=== PATIENT | male | born 1955 | race Caucasian/White ===

== ENCOUNTER 2024-09-02 06:44 | Inpatient (IN) | payer MEDICARE, MEDICAID ==
[~2024-09-02] VITALS: Ht 193 cm; Wt 102.0 kg
--- NOTE | 2024-09-02 07:27 | ED.PDOC ---
History of Present Illness HPI Comments 68M presents to the ER w/ prior Hx of Type II DM which may be associated to the c/c of LE. Pt reports that he has been having urination issues as well as a sore on his right foot for a "while but has worsened in the last couple of day's". Pt has bilateral Peripheral cyanosis of purple color and them being warm as well. Denies chills, fever, N/V/D, SOB, CP or other associated symptoms, modifiers or recent injuries or sick contact at this time. Chief Complaint: Lower Extremity Time Seen by MD: 07:15 Primary Care Provider: OUT OF AREA Reviewed Notes: Nurses Notes, Medications, Allergies Allergies: Coded Allergies: NO KNOWN ALLERGIES (Unverified , 03/30/12) Information Source: Patient Mode of Arrival: Ambulatory Severity: Moderate Timing: Days Duration: Since onset, Days Prehospital treatment: None Past Medical History PAST MEDICAL HISTORY: DM (Type II) Surgical History: Denies all surgeries Family History Family History: Reviewed,noncontributory to illness, Unknown Social History Smoker: Non-Smoker Alcohol: Denies ETOH Use Drugs: Denies Drug Use Lives In: Home Constitutional: denies: chills, diaphoresis, fatigue, fever, malaise, sweats, weakness, others EENTM: denies: blurred vision, double vision, ear bleeding, ear discharge, ear drainage, ear pain, ear ringing, eye pain, eye redness, hearing loss, mouth pain, mouth swelling, nasal discharge, nose bleeding, nose congestion, nose pain, photophobia, tearing, throat pain, throat swelling, voice changes, others Respiratory: denies: cough, hemoptysis, orthopnea, SOB at rest, shortness of breath, SOB with excertion, stridor, wheezing, others Cardiovascular: denies: chest pain, dizzy spells, diaphoresis, Dyspnea on exertion, edema, irregular heart beat, left arm pain, lightheadedness, palpitations, PND, syncope, others Gastrointestinal: denies: abdomen distended, abdominal pain, blood streaked bowels, constipated, diarrhea, dysphagia, difficulty swallowing, hematemesis, melena, nausea, poor appetite, poor fluid intake, rectal bleeding, rectal pain, vomiting, others Genitourinary: denies: burning, dysuria, flank pain, frequency, hematuria, incontinence, penile discharge, penile sore, pain, testicle pain, testicle swelling, urgency, others Neurological: denies: dizziness, fainting, headache, left sided numbness, left sided weakness, numbness, paresthesia, pre-existing deficit, right sided numbness, right sided weakness, seizure, speech problems, tingling, tremors, weakness, others Musculoskeletal: denies: back pain, gout, joint pain, joint swelling, muscle pain, muscle stiffness, neck pain, others Integumetry: reports: change in color; denies: bruises, change in hair/nails, dryness, laceration, lesions, lumps, rash, wounds, others Allergic/Immunocompromised: denies: Difficulty Healing, Frequent Infections, Hives, Itching, others Hematologic/Lymphatic: denies: anemia, blood clots, easy bleeding, easy bruising, swollen glands, others Endocrine: denies: excessive hunger, excessive sweating, excessive thirst, excessive urination, flushing, intolerance to cold, intolerance to heat, unexplained weight gain, unexplained weight loss, others Psychiatric: denies: anxiety, bipolar disorder, depression, hopeless, panic disorder, schizophrenia, sleepless, suicidal, others All Other Systems: Reviewed and Negative Physical Exam Exam Comments Bilateral LE of peripheral cyanosis Left LE is warmer than the Left LE Discoloration of both feet General Appearance: No Apparent Distress, Normal HEENT: Normal ENT Inspection, Pharynx Normal, TMs Normal Neck: Full Range of Motion, Non-Tender, Normal, Normal Inspection Respiratory: Chest Non-Tender, Lungs Clear, No Accessory Muscle Use, No Respiratory Distress, Normal Breath Sounds Cardiovascular: No Edema, No JVD, No Murmur, No Gallop, Normal Peripheral Pulses, Regular Rate/Rhythm Breast Exam: Deferred Gastrointestinal: No Organomegaly, Non Tender, No Pulsatile Mass, Normal Bowel Sounds, Soft Genitalia: Deferred Pelvic: Deferred Rectal: Deferred Extremities: No calf tenderness, Normal capillary refill, Normal inspection, Normal range of motion, Non-tender, No pedal edema Musculoskeletal : Apperance: Normal Neurologic: Alert, air sealing technician II-XII nml as Tested, No Motor Deficits, Normal Affect, Normal Mood, No Sensory Deficits Cerebellar Function: Normal Reflexes: Normal Skin: Dry, Normal Color, Warm Lymphatic: No Adenopathy Was a procedure done? Was a procedure done?: No Differential Dx Considerations may include: Osteomyelitis, abscess, diabetic foot, X-Ray, Labs, Meds, VS Vital Signs Date Time Temp Pulse Resp B/P (MAP) Pulse Ox O2 Delivery O2 Flow Rate FiO2 09/02/24 12:34 87 16 96 Room Air 0 09/02/24 11:27 98.5 87 16 140/83 (102) 96 98.5 09/02/24 11:07 88 16 95 Room Air* 0 21 09/02/24 11:06 98.6 88 14 147/85 (105) 95 98.6 09/02/24 06:58 98.3 85 17 123/78 (93) 96 Lab Test 09/02/24 08:08 09/02/24 06:56 Range/Units White Blood Count 10.5 4.4-10.8 10^3/uL Red Blood Count 5.12 4.5-5.90 10^6/uL Hemoglobin 15.5 13.5-17.5 g/dL Hematocrit 45.6 41.0-53.0 % Mean Corpuscular Volume 89.0 80.0-100.0 fL Mean Corpuscular Hemoglobin 30.3 28.0-32.0 pg Mean Corpuscular Hemoglobin Concent 34.0 32.0-36.0 g/dL Red Cell Distribution Width 13.4 11.8-14.3 % Platelet Count 174 140-450 10^3/uL Mean Platelet Volume 7.7 6.9-10.8 fL Neutrophils (%) (Auto) 80.8 H 37.0-80.0 % Lymphocytes (%) (Auto) 7.7 L 10.0-50.0 % Monocytes (%) (Auto) 10.8 0.0-12.0 % Eosinophils (%) (Auto) 0.5 0.0-7.0 % Basophils (%) (Auto) 0.2 0.0-2.0 % Neutrophils # (Auto) 8.5 1.6-8.6 10 ^3/uL Lymphocytes # (Auto) 0.8 0.4-5.4 10 ^3/uL Monocytes # (Auto) 1.1 0-1.3 10 ^3/uL Eosinophils # (Auto) 0 0-0.8 10 ^3/uL Basophils # (Auto) 0 0-0.2 10 ^3/uL Nucleated Red Blood Cells 0.0 % Erythrocyte Sedimentation Rate 14 0-20 mm/hr Sodium Level 137 136-145 mmol/L Potassium Level 4.0 3.5-5.1 mmol/L Chloride Level 103 98-107 mmol/L Carbon Dioxide Level 26 20-31 mmol/L Anion Gap 8 5-15 Blood Urea Nitrogen 13 9-23 mg/dL Creatinine 0.94 0.700-1.30 mg/dL Glomerular Filtration Rate Calc 89 >90 mL/min BUN/Creatinine Ratio 13.8 10.0-20.0 Serum Glucose 204 H 74-106 mg/dL Hemoglobin A1c 7.4 H <5.7 % A1C Calcium Level 10.4 8.7-10.4 mg/dL Total Bilirubin 1.3 H 0.2-1.0 mg/dL Aspartate Amino Transferase (AST) 16 13-40 U/L Alanine Aminotransferase (ALT) 23 7-40 U/L Alkaline Phosphatase 72 46-116 U/L C-Reactive Protein High Sensitivity 4.33 H <1.0 mg/dL Total Protein 7.6 5.7-8.2 g/dL Albumin 4.6 3.2-4.8 g/dL POC Glucose 188 H 70-106 mg/dl Current Medications Medications (Trade) Dose Ordered Sig/Ariana Route Start Time Stop Time Status Last Admin Piperacillin Sod/ Tazobactam Sod 100 ml @ 100 mls/hr ONCE ONCE IV 09/02/24 11:15 09/02/24 12:14 DC 09/02/24 11:44 Vancomycin HCl 250 ml @ 250 mls/hr Q1H IV 09/02/24 12:15 09/02/24 14:14 DC 09/02/24 14:38 Sodium Chloride 1,000 ml @ 75 mls/hr [id number] IV 09/02/24 13:15 09/02/24 13:58 X-Ray, Labs, Meds, VS Comment This is a 68-year-old gentleman with diabetic foot who has right foot is quite ecchymotic with a wound at the ventral surface. Patient is high-risk for complication of osteomyelitis abscess etc.. Therefore recommended hospitalization. Time of 1ST Reevaluation: 07:45 Reevaluation 1ST: Unchanged Patient Education/Counseling: Diagnosis, Treatment, Prognosis Family Education/Counseling: No Family Present Departure 1 Departure Time of Disposition: 11:02 Impression: Primary Impression: Diabetic foot Additional Impressions: Diabetic foot infection Diabetic foot ulcer Disposition: 09 ADMITTED INPATIENT Admit to: Med Surg Condition: Guarded Critical Care Note Critical Care Time?: Yes (45 min-critical care time only) Critical care comment: CRITICAL CARE TIME: minutes Treatments/Evaluations: Close monitoring and treatment of unstable vital signs, cardiorespiratory, and neurologic status, while maintaining tight balance of fluid, respiratory, and cardiac interventions. This time includes discussing the case with the patient and the patients family. This time does not include all procedures stated elsewhere in this record. This time also includes reviewing old records, labs and radiological studies. This time includes examining and re- examining the patient. Additionally, this time also includes arranging care with admitting and consulting physicians. Stability Stability form required: No I personally scribed for HENRY BROWNLEE MD ([email or web address]) on 09/02/24 at 07:27. Electronically submitted by Khurram Jorgensen ([email or web address]). HENRY BROWNLEE MD Sep 02, 2024 07:27
[2024-09-02 08:34] LABS: Basophils # (auto) 0 10 ^3/uL (0-0.2); Basophils % (auto) 0.2 % (0.0-2.0); Eosinophils # (auto) 0 10 ^3/uL (0-0.8); Eosinophils % (auto) 0.5 % (0.0-7.0); Hematocrit 45.6 % (41.0-53.0); Hemoglobin 15.5 g/dL (13.5-17.5); Lymphocytes # (auto) 0.8 10 ^3/uL (0.4-5.4); Lymphocytes % (auto) 7.7 % (10.0-50.0); Mean Corpuscular Hemoglobin 30.3 pg (28.0-32.0); Monocytes # (auto) 1.1 10 ^3/uL (0-1.3); Monocytes % (auto) 10.8 % (0.0-12.0); Neutrophils # (auto) 8.5 10 ^3/uL (1.6-8.6); Neutrophils % (auto) 80.8 % (37.0-80.0); Platelet Count (auto) 174 10^3/uL (140-450); Red Blood Cells 5.12 10^6/uL (4.5-5.90); Red Cell Distribution Width 13.4 % (11.8-14.3); White Blood Cell 10.5 10^3/uL (4.4-10.8)
[2024-09-02 08:52] LABS: Alanine Aminotransferase 23 U/L (7-40); Albumin 4.6 g/dL (3.2-4.8); Alkaline Phosphatase 72 U/L (46-116); Anion Gap 8 (5-15); Aspartate Aminotransferase 16 U/L (13-40); BUN/Creatinine Ratio 13.8 (10.0-20.0); Blood Urea Nitrogen 13 mg/dL (9-23); Calcium 10.4 mg/dL (8.7-10.4); Carbon Dioxide 26 mmol/L (20-31); Chloride 103 mmol/L (98-107); Sodium 137 mmol/L (136-145); Total Protein 7.6 g/dL (5.7-8.2)
[2024-09-02 09:01] LABS: Bilirubin, Total 1.3 mg/dL (0.2-1.0); CRP High Sensitivity 4.33 mg/dL (<1.0); Glucose 204 mg/dL (74-106)
[2024-09-02 09:40] LABS: Erythrocyte Sedimentation Rate 14 mm/hr (0-20)
--- NOTE | 2024-09-02 09:51 | DVH ---
EXAMINATION: CT CT R FOOT WO CONTRAST INDICATION: Diabetic foot COMPARISON: None TECHNIQUE: CT of the right foot was performed without contrast. Volume transverse images were obtaine d reconstructed in multiple planes using bone and soft tissue algorithms. CONTRAST: None Radiation Dose : CTDIvol 25 mGy, DLP 742.16 mGy*cm. The dose indicators for CT are the volume Computed Tomography (CT) Dose Index (CTDIvol) and the Dose Length Product (DLP), and are measured in units of mGy and mGy-cm, respectively. These indicators are not patient dose, but values generated from the CT scanner acquisition factors. The report includes radiation exposure data for exposures received during this examination. FINDINGS: There is a small wound underlying the 5th metatarsal head, with a superficial underlying hypodense co llection measuring 2.1 x 3.0 x 1.0 cm that abuts the 5th metatarsal head.There is no definite erosive change of adjacent 5th metatarsal bone. Possible additional wound along the plantar surface of 1st m etatarsal head is suggested, versus skin thickening. No acute fracture or osseous erosion is identified. There are scattered osseous degenerative changes . There is mild regional soft tissue swelling. IMPRESSION: 1. Small wound underlying the 5th metatarsal head. Superficial underlying hypodense collection measur ing 2.1 x 3.0 x 1.0 cm that abuts the plantar aspect of the 5th metatarsal head, which could represen t phlegmon versus abscess, incompletely evaluated without intravenous contrast. No definite erosive c hange of the adjacent 5th metatarsal bone. MRI is more sensitive in detecting osteomyelitis if clinic ally warranted. 2. Possible additional wound along the plantar surface of 1st metatarsal head, versus skin thickening . Correlate clinically. 3. Mild regional soft tissue edema / cellulitis. 4. No acute fracture.
[2024-09-02 11:07] VITALS: PULSE 88; RESP 16; O2SAT 95
[2024-09-02] MEDS ORDERED: VANCOMYCIN PER PHARMACY 0 MG IV SCH ×2 (11:15→13:15)
[2024-09-02] MEDS: PIPERACILLIN-TAZOB 3.375GM 100 ML IV ONE (11:44)
[2024-09-02] MEDS: VANCOMYCIN 1GM/250ML KIT 250 ML IV SCH (13:04)
[2024-09-02] MEDS ORDERED: ACETAMINOPHEN 325 MG TAB PO PRN (13:15)
[2024-09-02] MEDS ORDERED: DEXTROSE (50%) 50ML SYRG IV PRN (13:15)
[2024-09-02] MEDS: SODIUM CHLORIDE 0.9% 1,000 ML IV SCH (13:58)
--- NOTE | 2024-09-02 14:11 | DVHHP2 ---
History of Present Illness Reason for Visit: Right foot cellulitis History of Present Illness This is a 68-year-old male with history of type 2 DM presents to ED with chief complaint of right foot pain associated with swelling that started on progressively worse today. The patient reports coming to emergency room yest erday but due to lobby being full, patient decided to come today. The patient is concerned about his foot as it has not improved and would like to be further evaluated and treated. In addition to this the patient's complaint of urinary retention and may be undergoing a possible urinary tract infection that has been ongoing for several days. The patient will be admitted under hospitalist care to the medical-surgical unit, received IV hydration, IV antibiotics and monitoring of blood sugar levels. The patient denies fever, chills, headache, dizziness, palpitation, chest pain, shortness of breaths nausea, vomiting, abdominal pain, diarrhea, constipation and other associated symptoms. The plan has been discussed with the patient and primary RN in which all questions concerns have been addressed. Endocrine: Diabetes Past Surgical History: None Family History: None Smoke: No ALCOHOL: none Drugs: None Lives: with Family Domestic Violence: Neg Review of Systems Cardiovascular: Edema (To right foot) Genitourinary: Retention Skin: Other (Redness and tenderness to right foot) Allergies: Coded Allergies: NO KNOWN ALLERGIES (Unverified , 03/30/12) Medications Current Medications Medications Dose Ordered Sig/Ariana Route Start Time Stop Time Status Last Admin Dose Admin Vancomycin HCl 250 ml @ 250 mls/hr Q1H IV 09/02/24 12:15 09/02/24 14:14 09/02/24 13:04 250 MLS/HR Vancomycin HCl 0 ml @ 0 mls/hr UD IV 09/02/24 13:15 Sodium Chloride 1,000 ml @ 75 mls/hr [id number] IV 09/02/24 13:15 09/02/24 13:58 75 MLS/HR Acetaminophen/ Hydrocodone Bitart 1 tab Q4HP PRN PO 09/02/24 13:15 Zinc Sulfate 220 mg DAILY PO 09/03/24 10:00 Ascorbic Acid 500 mg BID PO 09/02/24 22:00 Multivitamins 1 tab DAILY PO 09/03/24 10:00 Acetaminophen 650 mg Q6HP PRN PO 09/02/24 13:15 Diagnostic Test (Pha) 1 strip ACHS 09/02/24 17:00 Insulin Human Regular ACHS SC 09/02/24 17:00 Dextrose 50 ml UD PRN IV 09/02/24 13:15 Piperacillin Sod/ Tazobactam Sod 100 ml @ 25 mls/hr Q8H IV 09/02/24 20:00 Exam Vital Signs Vital Signs Date Time Temp Pulse Resp B/P (MAP) Pulse Ox O2 Delivery O2 Flow Rate FiO2 09/02/24 12:34 87 16 96 Room Air 0 09/02/24 11:27 98.5 140/83 (102) 98.5 09/02/24 11:07 21 General Appearance: Alert, Oriented X3, Cooperative, No acute distress HEENT: Atraumatic, PERRLA, Mucous membr. moist/pink Respiratory: Clear to auscultation, Normal air movement Cardiovascular: Normal S1, Normal S2, No murmurs Abdominal: Normal bowel sounds, Soft, No tenderness, No hepatospenomegaly, No masses Extremities: No clubbing, Normal pulses Skin: No rashes Neuro: Normal gait, Normal speech, Strength at 5/5 X4 ext, Normal tone, Sensation intact, Cranial nerves 3-12 NL, Reflexes 2+ Psych/Mental Status: Mental status NL Labs/Xrays Labs Test 09/02/24 08:08 09/02/24 06:56 Range/Units White Blood Count 10.5 4.4-10.8 10^3/uL Red Blood Count 5.12 4.5-5.90 10^6/uL Hemoglobin 15.5 13.5-17.5 g/dL Hematocrit 45.6 41.0-53.0 % Mean Corpuscular Volume 89.0 80.0-100.0 fL Mean Corpuscular Hemoglobin 30.3 28.0-32.0 pg Mean Corpuscular Hemoglobin Concent 34.0 32.0-36.0 g/dL Red Cell Distribution Width 13.4 11.8-14.3 % Platelet Count 174 140-450 10^3/uL Mean Platelet Volume 7.7 6.9-10.8 fL Neutrophils (%) (Auto) 80.8 H 37.0-80.0 % Lymphocytes (%) (Auto) 7.7 L 10.0-50.0 % Monocytes (%) (Auto) 10.8 0.0-12.0 % Eosinophils (%) (Auto) 0.5 0.0-7.0 % Basophils (%) (Auto) 0.2 0.0-2.0 % Neutrophils # (Auto) 8.5 1.6-8.6 10 ^3/uL Lymphocytes # (Auto) 0.8 0.4-5.4 10 ^3/uL Monocytes # (Auto) 1.1 0-1.3 10 ^3/uL Eosinophils # (Auto) 0 0-0.8 10 ^3/uL Basophils # (Auto) 0 0-0.2 10 ^3/uL Nucleated Red Blood Cells 0.0 % Erythrocyte Sedimentation Rate 14 0-20 mm/hr Sodium Level 137 136-145 mmol/L Potassium Level 4.0 3.5-5.1 mmol/L Chloride Level 103 98-107 mmol/L Carbon Dioxide Level 26 20-31 mmol/L Anion Gap 8 5-15 Blood Urea Nitrogen 13 9-23 mg/dL Creatinine 0.94 0.700-1.30 mg/dL Glomerular Filtration Rate Calc 89 >90 mL/min BUN/Creatinine Ratio 13.8 10.0-20.0 Serum Glucose 204 H 74-106 mg/dL Calcium Level 10.4 8.7-10.4 mg/dL Total Bilirubin 1.3 H 0.2-1.0 mg/dL Aspartate Amino Transferase (AST) 16 13-40 U/L Alanine Aminotransferase (ALT) 23 7-40 U/L Alkaline Phosphatase 72 46-116 U/L C-Reactive Protein High Sensitivity 4.33 H <1.0 mg/dL Total Protein 7.6 5.7-8.2 g/dL Albumin 4.6 3.2-4.8 g/dL POC Glucose 188 H 70-106 mg/dl ORDERING PHYSICIAN: HENRY BROWNLEE MD PROCEDURE(s): RFTCT - CT R FOOT WO CONTRAST REASON: Diabetic foot ORDER NUMBER(s): [id number], ACCESSION NUMBER(s): [id number] EXAMINATION: CT CT R FOOT WO CONTRAST INDICATION: Diabetic foot COMPARISON: None TECHNIQUE: CT of the right foot was performed without contrast. Volume transverse images were obtained reconstructed in multiple planes using bone and soft tissue algorithms. CONTRAST: None Radiation Dose : CTDIvol 25 mGy, DLP 742.16 mGy*cm. The dose indicators for CT are the volume Computed Tomography (CT) Dose Index (CTDIvol) and the Dose Length Product (DLP), and are measured in units of mGy and mGy-cm, respectively. These indicators are not patient dose, but values generated from the CT scanner acquisition factors. The report includes radiation exposure data for exposures received during this examination. FINDINGS: There is a small wound underlying the 5th metatarsal head, with a superficial underlying hypodense collection measuring 2.1 x 3.0 x 1.0 cm that abuts the 5th metatarsal head.There is no definite erosive change of adjacent 5th metatarsal bone. Possible additional wound along the plantar surface of 1st metatarsal head is suggested, versus skin thickening. No acute fracture or osseous erosion is identified. There are scattered osseous degenerative changes. There is mild regional soft tissue swelling. IMPRESSION: 1. Small wound underlying the 5th metatarsal head. Superficial underlying hypodense collection measuring 2.1 x 3.0 x 1.0 cm that abuts the plantar aspect of the 5th metatarsal head, which could represent phlegmon versus abscess, incompletely evaluated without intravenous contrast. No definite erosive change of the adjacent 5th metatarsal bone. MRI is more sensitive in detecting osteomyelitis if clinically warranted. 2. Possible additional wound along the plantar surface of 1st metatarsal head, versus skin thickening. Correlate clinically. 3. Mild regional soft tissue edema / cellulitis. 4. No acute fracture. ATED BY: DIONI SOLER MD DICTATED DATE/TIME: 09/02/24947 SIGNED BY: DIONI SOLER MD SIGNED DATE/TIME: 09/02/24947 CC: Assessment/Plan Assessment/Plan Right foot cellulitis---patient presents to ED with complaint of right foot swelling and pain that started on progressively worse today Admit to medical-surgical unit Reviewed CBC which is normal Reviewed BMP which is normal Reviewed ESR which is normal CRP elevated at 4.[address] shows 5th metatarsal small wound versus abscess/mild soft tissue edema/cellulitis IV hydration IV antibiotics started in the ER vancomycin and Zosyn Consider to Consult carbonizer Dr. Lind for evaluation and recommendation ? Urinary tract infection Patient reports urinary retention times several days Urinalysis pending Reconcile home medication DVT prophylaxis not indicated patient ambulatory PUD prophylaxis not indicated no history of GERD Labs in a.m. Discussed plan of care with the patient in which all questions concerns have been addressed Plan discussed with: Patient My Orders Orders - JOSUE GONZALEZ Procedure Category Date Status Time Vancomycin Per PHA 09/02/24 In Process Pharmacy 13:15 Admit ADMIT 09/02/24 Transmitted 13:14 2 Gm Sodium Diet DIET 09/02/24 Transmitted Lunch Sodium Chloride 0.9% PHA 09/02/24 In Process 13:15 Hydrocodone-Acet PHA 09/02/24 In Process 5/325mg Tab ([facility] 13:15 Zinc Sulfate PHA 09/03/24 In Process 10:00 Ascorbic Acid Tablet PHA 09/02/24 In Process (Vitamin C Tablet) 22:00 Multiple Vitamin PHA 09/03/24 In Process Tablet (Mvi Tab) 10:00 Complete Blood Count LAB 09/03/24 Verified 04:00 Comprehensive LAB 09/03/24 Verified Metabolic Panel 04:00 Condition: Fair SAMMY 09/02/24 In Process 13:14 Acetaminophen Tablet PHA 09/02/24 In Process (Tylenol Tablet) 13:15 Bedrest With Bathroom SAMMY 09/02/24 In Process Privileg 13:14 Glucose Blood PHA 09/02/24 In Process (Accu-Chek Comfort 17:00 Insulin R (Human) PHA 09/02/24 In Process (Insulin R) 17:00 Dextrose 50% Syringe PHA 09/02/24 In Process 13:15 Hemoglobin A1c LAB 09/02/24 Logged 13:14 *Rn Truck Driver Supervisor REFER 09/02/24 Transmitted Referral 13:14 *Podiatry Consult CONS 09/02/24 Transmitted Musson([facility]) 13:14 Piperacillin-Tazob PHA 09/02/24 In Process 3.375gm (Zosyn 3.375g 20:00 Date of Service: Sep 02, 2024 Billing Provider: JOSUE GONZALEZ Common Visit Codes: [id number] INP/OBS CARE (HIGH) JOSUE GONZALEZ Sep 02, 2024 14:11
[2024-09-02 14:58] LABS: Urine Bacteria FEW /hpf (None Seen); Urine Blood 1+ /uL (Negative); Urine Clarity Turbid (Clear); Urine Protein, UAD TRACE (Negative); Urine Specific Gravity 1.021 (1.001-1.035); Urine Squamous Epithelial Cell FEW /hpf (<5); Urine Urobilinogen Normal (Negative); Urine WBC 265 /hpf (0 - 3)
[2024-09-02 14:59] LABS: Urine Color Yellow (Yellow)
[2024-09-02] MEDS: InsuLIN REG 1unit/0.01ml Soln (100units/ml) SC SCH (17:00)
[2024-09-02] MEDS: ACCU-CHEK COMFORT CURVE STRIP VI SCH (17:25)
[2024-09-02 20:40] VITALS: PULSE 96; RESP 19; O2SAT 95
[2024-09-02] MEDS: PIPERACILLIN-TAZOB 3.375GM 100 ML IV SCH (20:51)
[2024-09-02] MEDS: ASCORBIC ACID 500 MG TAB PO SCH (21:19)
[2024-09-02 21:59] VITALS: BP 128/74; PULSE 88; RESP 18; TEMP 98.2; O2SAT 94
[2024-09-02] MEDS: HYDROcodone-ACET 5/325MG TAB PO PRN (23:13)
[2024-09-02 23:29] VITALS: BP 135/84; PULSE 96; RESP 19; TEMP 98.9; O2SAT 95
[2024-09-03] VITALS (8 sets, daily range): BP systolic 113–131; BP diastolic 68–79; PULSE 78–94; RESP 17–19; TEMP 97.6–98.9; O2SAT 93–96
[2024-09-03] MEDS: VANCOMYCIN 1.25GM/250ML 250 ML IV SCH (00:59)
[2024-09-03 08:03] LABS: Basophils # (auto) 0 10 ^3/uL (0-0.2); Basophils % (auto) 0.3 % (0.0-2.0); Eosinophils # (auto) 0.1 10 ^3/uL (0-0.8); Eosinophils % (auto) 0.7 % (0.0-7.0); Hematocrit 41.8 % (41.0-53.0); Hemoglobin 14.5 g/dL (13.5-17.5); Lymphocytes # (auto) 1.3 10 ^3/uL (0.4-5.4); Lymphocytes % (auto) 12.3 % (10.0-50.0); Mean Corpuscular Hgb Conc. 34.7 g/dL (32.0-36.0); Mean Corpuscular Volume 89.3 fL (80.0-100.0); Monocytes # (auto) 1.1 10 ^3/uL (0-1.3); Monocytes % (auto) 10.5 % (0.0-12.0); Neutrophils # (auto) 7.8 10 ^3/uL (1.6-8.6); Neutrophils % (auto) 76.2 % (37.0-80.0); Nucleated Red Blood Cells % 0.1 %; Platelet Count (auto) 163 10^3/uL (140-450); Red Blood Cells 4.68 10^6/uL (4.5-5.90); Red Cell Distribution Width 13.1 % (11.8-14.3); White Blood Cell 10.3 10^3/uL (4.4-10.8)
[2024-09-03 08:20] LABS: Alanine Aminotransferase 17 U/L (7-40); Alkaline Phosphatase 63 U/L (46-116); Anion Gap 8 (5-15); BUN/Creatinine Ratio 13.3 (10.0-20.0); Blood Urea Nitrogen 11 mg/dL (9-23); Calcium 9.8 mg/dL (8.7-10.4); Carbon Dioxide 26 mmol/L (20-31); Chloride 104 mmol/L (98-107); Potassium 3.9 mmol/L (3.5-5.1); Sodium 138 mmol/L (136-145)
[2024-09-03 08:21] LABS: Albumin 4.2 g/dL (3.2-4.8)
[2024-09-03 08:22] LABS: Aspartate Aminotransferase 14 U/L (13-40); Bilirubin, Total 1.3 mg/dL (0.2-1.0); Glucose 133 mg/dL (74-106); Total Protein 6.9 g/dL (5.7-8.2)
[2024-09-03] MEDS: MULTIPLE VITAMIN TAB PO SCH (09:38)
[2024-09-03] MEDS: ZINC SULFATE 220mg CAP or TAB PO SCH (09:38)
--- NOTE | 2024-09-03 15:54 | DVH ---
EXAM: MRI MRI R FOOT WO CONTRAST HISTORY: r/o osteomylitis COMPARISON: CT CT R FOOT WO CONTRAST on DOS: 09/02/24 TECHNIQUE: Multiplanar, multisequence MRI of the right foot was performed. FINDINGS: An approximately 3 x 2.3 x 0.5 cm subcutaneous fluid collection is noted on aspect of MTP joint, with overlying skin abrasion/ulceration. The adjacent metatarsal head cortex is irregular mildly edemato us minimal underlying bone marrow edema suggestive of developing osteomyelitis. No 5th MTP joint effu edward. No abnormal signal in the 5th proximal phalanx. Mild dorsal foot subcutaneous edema is seen. There is mild hallux valgus deformity with mild 1st MTP joint osteoarthritis and small joint effusion . Lisfranc joint is congruent and Lisfranc tendon is intact. Flexor and extensor tendons are intact. Moderate plantar and interosseous fatty muscle atrophy noted . Visualized plantar fascia is unremarkable. IMPRESSION: 1. Skin ulceration on the lateral and plantar aspect of the 5th MTP joint with a thin underlying 3 x 0.5 cm subcutaneous fluid collection extending to underlying 5th metatarsal head with evidence of dev eloping acute osteomyelitis. 2. Mild dorsal foot subcutaneous edema. 3. Moderate plantar and interosseous fatty muscle atrophy.
--- NOTE | 2024-09-03 17:09 | DVHPNRES ---
Progress Note Date Seen: Sep 03, 2024 Resident Creating Document: PASCUAL SANDHU RESIDENT Medical Necessity Reason Pt with a Central, PICC or Fol: No Medical Necessity Reason Diabetic foot ulcer Subjective Review of Systems This is a 68-year-old male with history of type 2 DM presents to ED with chief complaint of right foot pain associated with swelling that started on progressively worse today. The patient is concerned about his foot as it has not improved and would like to be further evaluated and treated. In addition to this the patient's complaint of urinary retention and may be undergoing a possible urinary tract infection that has been ongoing for several days. The patient denies fever, chills, headache, dizziness, palpitation, chest pain, shortness of breaths nausea, vomiting, abdominal pain, diarrhea, constipation and other associated symptoms. Initial vitals in the ED were grossly unremarkable. blood work Lab work was also remote grossly unremarkable and UA was positive for UTI PN 09/03/2024: Patient seen and examined today. He has no new complaint. He did mentioned that his right foot was swollen however he is not aware of any ulcers or any open wounds. Still vitals stable and within normal limits. Lab shows A1c :7.4; CT shows cellulitis and MRI of the foot shows: Skin ulceration on the lateral and plantar aspect of the 5th MTP joint with a thin underlying 3 x 0.5 cm subcutaneous fluid collection extending to underlying 5th metatarsal head with evidence of developing acute osteomyelitis. Mild dorsal foot subcutaneous edema. Objective vital signs Vital Sign Date Time Temp Pulse Resp B/P (MAP) Pulse Ox O2 Delivery O2 Flow Rate FiO2 09/03/24 13:00 97.8 78 18 123/79 (94) 96 97.8 09/03/24 08:00 Room Air* 0 21 Total Intake and Output 09/02/24 09/02/24 09/03/24 15:00 23:00 07:00 Intake Total 425 ml 325 ml 650 ml Balance 425 ml 325 ml 650 ml medications Current Medications Medications Dose Ordered Sig/Ariana Route Start Time Stop Time Status Last Admin Dose Admin Vancomycin HCl 0 ml @ 0 mls/hr UD IV 09/02/24 13:15 Sodium Chloride 1,000 ml @ 75 mls/hr [id number] IV 09/02/24 13:15 09/03/24 02:35 75 MLS/HR Acetaminophen/ Hydrocodone Bitart 1 tab Q4HP PRN PO 09/02/24 13:15 09/02/24 23:13 1 TAB Zinc Sulfate 220 mg DAILY PO 09/03/24 10:00 09/03/24 09:38 220 MG Ascorbic Acid 500 mg BID PO 09/02/24 22:00 09/03/24 09:38 500 MG Multivitamins 1 tab DAILY PO 09/03/24 10:00 09/03/24 09:38 1 TAB Acetaminophen 650 mg Q6HP PRN PO 09/02/24 13:15 Diagnostic Test (Pha) 1 strip ACHS 09/02/24 17:00 09/03/24 11:30 1 STRIP Insulin Human Regular ACHS SC 09/02/24 17:00 09/03/24 12:17 4 UNITS Dextrose 50 ml UD PRN IV 09/02/24 13:15 Piperacillin Sod/ Tazobactam Sod 100 ml @ 25 mls/hr Q8H IV 09/02/24 20:00 09/03/24 12:16 25 MLS/HR Vancomycin HCl 250 ml @ 200 mls/hr Q12H IV 09/03/24 01:00 09/03/24 16:09 200 MLS/HR Tamsulosin HCl 0.4 mg QPM PO 09/03/24 18:00 Examination General Appearance: Alert, Oriented X3, Cooperative, No acute distress HEENT: irregular rough skin elevations with central scars or scales noted on the right jew, Atraumatic, PERRLA, EOMI, Mucous membrane moist/pink Respiratory: Clear to auscultation, Normal air movement Cardiovascular: Regular rate, Normal S1, Normal S2, No murmurs, no chest wall tenderness Abdominal: NO distention, no tenderness, bowel sounds present, no scars noted Extremities: --Rt foot: --> Mild edema, erythema --> ulcer under the foot --> no open sore/ wounds in between his toes Left foot: No abnormalities noted, callus note at mid lateral foot Upper Extremities: irregular rough skin elevations with central scars or scales No clubbing, No cyanosis, No edema, Normal pulses, No tenderness/swelling Skin: No rashes, No breakdown, No significant lesion Neuro: Normal gait, Normal speech, Strength at 5/5 X4 ext, Normal tone, Sensation intact, Cranial nerves 3-12 NL, Reflexes 2+ Psych/Mental Status: Mental status NL, Mood NL laboratory and microbiology Laboratory Tests 09/03/24 06:29 Test 09/03/24 06:29 Range/Units Serum Glucose 133 H 74-106 mg/dL Microbiology Date/Time Source Procedure Growth Status 09/02/24 08:08 Blood Blood Culture - Preliminary NO GROWTH AFTER 24 HOURS OF INCUBATION. Resulted Problem List/Assessment/Plan Problem List/Assessment/Plan Assessment Acute Osteomyelitis of the right lateral foot Diabetic foot ulcer Uncontrolled Diabetes, A1C 7.4 Urinary incontinence UTI History of hypertension History of hyperlipidemia Actinic Keratosis ?SCC Plan --> Continue antibiotic: Vancomycin and Zosyn --> Mld Insulins sliding scale --> PSA lab pending --> Podiatry consult --> Hydralazine 10mg prn if SBP is > 170 --> Tamsulosin --> Recommend that patient sees a sr risk management consultant outpatient CODE STATUS: FULL Goal of care discussed for more than 45 minute Case and plan discussed with Plan discussed with: Patient My Orders My Orders Orders - PASCUAL SANDHU Procedure Category Date Status Time Drug Screen LAB 09/03/24 Logged 07:35 Mri R Foot Wo Contrast MRI 09/03/24 Resulted 12:52 2 Gm Sodium Diet DIET 09/03/24 Transmitted Lunch Psa Total+% Free LAB 09/03/24 In Process 13:51 Tamsulosin PHA 09/03/24 In Process Hydrochloride (Flomax) 18:00 Podiatry Consult CONS 09/03/24 Transmitted 13:51 * Wound Consult CONS 09/03/24 Transmitted Date of Service: Sep 03, 2024 Billing Provider: MUSA CHUNG MD Common Visit Codes: [id number] INP/OBS CARE(HIGH) PASCUAL SANDHU RESIDENT Sep 03, 2024 17:09 MUSA CHUNG MD Sep 04, 2024 07:27
[2024-09-03] MEDS ORDERED: DEXTROSE (50%) 50ML SYRG IV PRN (17:15)
[2024-09-03] MEDS: TAMSULOSIN HYDROCHLORIDE 0.4 MG CAP PO SCH (17:50)
--- NOTE | 2024-09-03 19:19 | DVH ---
EXAM: XY CHEST PORTABLE TECHNIQUE: Single frontal chest radiograph CLINICAL HISTORY: pre op COMPARISON: None Findings/Impression: Frontal chest radiograph demonstrates no acute osseous or superficial soft tissue abnormalities. The trachea is midline. The cardiac silhouette and mediastinum are within normal limits. No pneumothorax, pleural effusions, or consolidations.
[2024-09-03] MEDS: ACCU-CHEK COMFORT CURVE STRIP VI SCH (20:33)
[2024-09-03] MEDS: InsuLIN REG 1unit/0.01ml Soln (100units/ml) SC SCH (20:42)
[2024-09-04] VITALS (8 sets, daily range): BP systolic 98–137; BP diastolic 60–77; PULSE 70–96; RESP 17–19; TEMP 97.6–98.7; O2SAT 92–99
[2024-09-04 06:22] LABS: Anion Gap 9 (5-15); Carbon Dioxide 23 mmol/L (20-31); Potassium 3.7 mmol/L (3.5-5.1); Sodium 140 mmol/L (136-145)
[2024-09-04 06:23] LABS: Calcium 9.8 mg/dL (8.7-10.4)
[2024-09-04 06:25] LABS: INR 1.09 (0.9-1.15); Partial Thromboplastin Time 28.5 SEC (24.5-34.5); Prothrombin Time 11.5 sec (9.3-11.8)
[2024-09-04 06:27] LABS: Basophils # (auto) 0 10 ^3/uL (0-0.2); Basophils % (auto) 0.4 % (0.0-2.0); Eosinophils # (auto) 0.1 10 ^3/uL (0-0.8); Eosinophils % (auto) 1.1 % (0.0-7.0); Hematocrit 39.6 % (41.0-53.0); Hemoglobin 13.7 g/dL (13.5-17.5); Lymphocytes # (auto) 1.4 10 ^3/uL (0.4-5.4); Lymphocytes % (auto) 16.2 % (10.0-50.0); Mean Corpuscular Hemoglobin 30.6 pg (28.0-32.0); Mean Corpuscular Hgb Conc. 34.6 g/dL (32.0-36.0); Mean Corpuscular Volume 88.4 fL (80.0-100.0); Monocytes # (auto) 0.9 10 ^3/uL (0-1.3); Monocytes % (auto) 10.3 % (0.0-12.0); Neutrophils # (auto) 6.1 10 ^3/uL (1.6-8.6); Nucleated Red Blood Cells % 0.2 %; Platelet Count (auto) 173 10^3/uL (140-450); Red Blood Cells 4.48 10^6/uL (4.5-5.90); Red Cell Distribution Width 13.1 % (11.8-14.3); White Blood Cell 8.5 10^3/uL (4.4-10.8)
[2024-09-04 06:28] LABS: BUN/Creatinine Ratio 10.3 (10.0-20.0); Blood Urea Nitrogen 9 mg/dL (9-23)
[2024-09-04 06:29] LABS: Chloride 108 mmol/L (98-107); Glucose 145 mg/dL (74-106)
--- NOTE | 2024-09-04 07:19 | DVHINCON2 ---
Date Seen: Sep 03, 2024 Reason for Consultation right foot wound History of Present Illness This is a 68-year-old male with history of type 2 DM presents to ED with chief complaint of right foot pain associated with swelling that started on progressively worse today. The patient reports coming to emergency room yesterday but due to lobby being full, patient decided to come today. The patient is concerned about his foot as it has not improved and would like to be further evaluated and treated. In addition to this the patient's complaint of urinary retention and may be undergoing a possible urinary tract infection that has been ongoing for several days. The patient will be admitted under hospitalist care to the medical-surgical unit, received IV hydration, IV antibiotics and monitoring of blood sugar levels. The patient denies fever, chills, headache, dizziness, palpitation, chest pain, shortness of breaths nausea, vomiting, abdominal pain, diarrhea, constipation and other associated symptoms. The plan has been discussed with the patient and primary RN in which all questions concerns have been addressed. Past Medical History see H&P Past Surgical History see H&P Family History: Cardiovascular disease G8 FATHER grandfather Allergies: Coded Allergies: NO KNOWN ALLERGIES (Unverified , 03/30/12) Home Meds No Active Prescriptions or Reported Meds Current Medications Current Medications Medications (Trade) Dose Ordered Sig/Ariana Route PRN Reason Start Time Stop Time Status Last Admin Zinc Sulfate 220 mg DAILY PO 09/03/24 10:00 09/03/24 09:38 Multivitamins (Mvi Tab) 1 tab DAILY PO 09/03/24 10:00 09/03/24 09:38 Tamsulosin HCl (Flomax) 0.4 mg QPM PO 09/03/24 18:00 09/03/24 17:50 Diagnostic Test (Pha) (Accu-Chek Comfort Curve T) 1 strip IQ4HR 09/03/24 20:00 09/04/24 04:15 Insulin Human Regular (InsuLIN R) IQ4HR SC 09/03/24 20:00 09/04/24 00:39 Dextrose 50 ml UD PRN IV Blood Sugar LESS THAN 60 09/03/24 17:15 Vital Signs Vital Signs Date Time Temp Pulse Resp B/P (MAP) Pulse Ox O2 Delivery O2 Flow Rate FiO2 09/04/24 05:00 97.7 78 18 117/73 (88) 92 97.7 09/03/24 20:00 Room Air* 0 21 Physical Exam DERMATOLOGIC EXAM: - Skin is dry and cool to the touch dry bilaterally. - Nails 1-5 of the bilateral foot are thickened, discolored, dystrophic, and tender to palpate with subungual debris - Hair loss noted to bilateral feet Wound #1: Location: Right lateral foot Measurements: Length 1cm x width 1cm x depth 1cm. Wound margins: Hyperkeratotic. Wound base: Full thickness. General Appearance: Healthy and bleeding. Probes to Bone: Yes Purulent drainage: Yes Serous drainage: No Erythema: Yes VASCULAR EXAM: - DP and PT pulses are palpable bilaterally. - CONTACT CLERK is brisk to all digits. - Feet are cool to touch compared to lower legs bilaterally. NEUROLOGIC EXAM: - Normal light touch sensation to the superficial peroneal, deep peroneal, sural, saphenous, and tibial nerve branches. - Protective sensation is diminished as tested with a 5.07 10g [place] bilaterally. MUSCULOSKELETAL EXAM: - No gross deformities - Muscle strength is 5/5 and active motion is pain-free and symmetrical bilaterally - No pain or crepitation with passive range of motion bilaterally to all major pedal joints Labs/Diagnostic Data Labs Test 09/04/24 05:27 09/04/24 00:34 09/04/24 00:30 09/03/24 14:57 Range/Units White Blood Count 8.5 4.4-10.8 10^3/uL Red Blood Count 4.48 L 4.5-5.90 10^6/uL Hemoglobin 13.7 13.5-17.5 g/dL Hematocrit 39.6 L 41.0-53.0 % Mean Corpuscular Volume 88.4 80.0-100.0 fL Mean Corpuscular Hemoglobin 30.6 28.0-32.0 pg Mean Corpuscular Hemoglobin Concent 34.6 32.0-36.0 g/dL Red Cell Distribution Width 13.1 11.8-14.3 % Platelet Count 173 140-450 10^3/uL Mean Platelet Volume 8.0 6.9-10.8 fL Neutrophils (%) (Auto) 72.0 37.0-80.0 % Lymphocytes (%) (Auto) 16.2 10.0-50.0 % Monocytes (%) (Auto) 10.3 0.0-12.0 % Eosinophils (%) (Auto) 1.1 0.0-7.0 % Basophils (%) (Auto) 0.4 0.0-2.0 % Neutrophils # (Auto) 6.1 1.6-8.6 10 ^3/uL Lymphocytes # (Auto) 1.4 0.4-5.4 10 ^3/uL Monocytes # (Auto) 0.9 0-1.3 10 ^3/uL Eosinophils # (Auto) 0.1 0-0.8 10 ^3/uL Basophils # (Auto) 0 0-0.2 10 ^3/uL Nucleated Red Blood Cells 0.2 % Prothrombin Time 11.5 9.3-11.8 sec Prothrombin Time INR 1.09 0.9-1.15 Activated Partial Thromboplast Time 28.5 24.5-34.5 SEC Sodium Level 140 136-145 mmol/L Potassium Level 3.7 3.5-5.1 mmol/L Chloride Level 108 H 98-107 mmol/L Carbon Dioxide Level 23 20-31 mmol/L Anion Gap 9 5-15 Blood Urea Nitrogen 9 9-23 mg/dL Creatinine 0.87 0.700-1.30 mg/dL Glomerular Filtration Rate Calc 95 >90 mL/min BUN/Creatinine Ratio 10.3 10.0-20.0 Serum Glucose 145 H 74-106 mg/dL Calcium Level 9.8 8.7-10.4 mg/dL POC Glucose 133 H 70-106 mg/dl Vancomycin Level Trough 11.5 H 5-10 ug/mL Test 09/03/24 06:29 09/02/24 14:47 09/02/24 08:08 Range/Units Total Bilirubin 1.3 H 0.2-1.0 mg/dL Aspartate Amino Transferase (AST) 14 13-40 U/L Alanine Aminotransferase (ALT) 17 7-40 U/L Alkaline Phosphatase 63 46-116 U/L Total Protein 6.9 5.7-8.2 g/dL Albumin 4.2 3.2-4.8 g/dL Urine Color Yellow Yellow Urine Clarity Turbid H Clear Urine pH 6.0 5.0-9.0 Urine Specific Broussard 1.021 1.001-1.035 Urine Protein Trace H Negative Urine Ketones 1+ H Negative Urine Blood 1+ H Negative /uL Urine Nitrite 2+ H Negative Urine Bilirubin Negative Negative Urine Urobilinogen Normal Negative mg/dL Urine Leukocyte Esterase 3+ Negative /uL Urine RBC 7 0 - 3 /hpf Urine WBC 265 0 - 3 /hpf Urine Squamous Epithelial Cells Few <5 /hpf Urine Bacteria Few H None Seen /hpf Urine Glucose Normal Normal mg/dL Erythrocyte Sedimentation Rate 14 0-20 mm/hr Hemoglobin A1c 7.4 H <5.7 % A1C C-Reactive Protein High Sensitivity 4.33 H <1.0 mg/dL Microbiology Date/Time Source Procedure Growth Status 09/02/24 08:08 Blood Blood Culture - Preliminary NO GROWTH AFTER 24 HOURS OF INCUBATION. Resulted Problems(with codes): (1) Diabetic foot (2) Diabetic foot ulcer (3) Diabetic foot infection Plan/Recommendation ASSESSMENT: Patient is a 68 year old seen on the floor for a worsening ulcer PLAN: - The patients chart was reviewed, clinical findings were discussed with the patient, the etiologies of the conditions were discussed in detail, and a treatment plan was agreed to at this time, with both oral and written instructions provided. - reviewed advanced imaging - discussed plan is to perform an incision and drainage - patient will be NPO at midnight - take him to the OR today - patient will return to the OR at a future date for closure - we will get cultures in the OR - can weightbear as tolerated in postoperative shoe All questions were answered and concerns addressed to the patient's satisfaction. The patient was given the phone number to the clinic and was told how to make contact with the clinic should any concerns or questions arise. Patient understands that if any questions or concerns arise prior to the next appointment, we should be contacted immediately. FOLLOW-UP: Continue to follow while inpatient Plan discussed with: Patient Date of Service: Sep 03, 2024 Billing Provider: ELIAS WHARTON DPM Common Visit Codes: [id number] INP/OBS CARE (HIGH) ELIAS WHARTON DPM Sep 04, 2024 07:19
--- NOTE | 2024-09-04 09:57 | DVHPNRES ---
Progress Note Date Seen: Sep 04, 2024 Resident Creating Document: PASCUAL SANDHU RESIDENT Medical Necessity Reason Pt with a Central, PICC or Fol: No Medical Necessity Reason Acute osteomyelitis of the right foot Diabetic foot ulcer Uncontrolled diabetes Subjective Review of Systems PN 09/03/2024: Patient seen and examined today. He has no new complaint. He did mentioned that his right foot was swollen however he is not aware of any ulcers or any open wounds. Still vitals stable and within normal limits. Lab shows A1c :7.4; CT shows cellulitis and MRI of the foot shows: Skin ulceration on the lateral and plantar aspect of the 5th MTP joint with a thin underlying 3 x 0.5 cm subcutaneous fluid collection extending to underlying 5th metatarsal head with evidence of developing acute osteomyelitis. Mild dorsal foot subcutaneous edema. PN 09/04/2024: Patient is seen and examined today at the bedside. He is doing well. He has no new complaint. He was seen yesterday by the knit goods washer who has reviewed the MRI findings with him. MRI showed evidence of developing acute osteomyelitis of the right foot. Patient has therefore been kept NPO for OR today for probably incision and drainage.His vitals and labs are within normal limits. Objective vital signs Vital Sign Date Time Temp Pulse Resp B/P (MAP) Pulse Ox O2 Delivery O2 Flow Rate FiO2 09/04/24 05:00 97.7 78 18 117/73 (88) 92 97.7 09/03/24 20:00 Room Air* 0 21 Total Intake and Output 09/03/24 09/03/24 09/04/24 15:00 23:00 07:00 Intake Total 2430 ml 2300 ml Output Total 1100 ml Balance 1330 ml 2300 ml medications Current Medications Medications Dose Ordered Sig/Ariana Route Start Time Stop Time Status Last Admin Dose Admin Vancomycin HCl 0 ml @ 0 mls/hr UD IV 09/02/24 13:15 Sodium Chloride 1,000 ml @ 75 mls/hr [id number] IV 09/02/24 13:15 09/04/24 06:08 75 MLS/HR Acetaminophen/ Hydrocodone Bitart 1 tab Q4HP PRN PO 09/02/24 13:15 09/02/24 23:13 1 TAB Zinc Sulfate 220 mg DAILY PO 09/03/24 10:00 09/03/24 09:38 220 MG Ascorbic Acid 500 mg BID PO 09/02/24 22:00 09/03/24 21:43 500 MG Multivitamins 1 tab DAILY PO 09/03/24 10:00 09/03/24 09:38 1 TAB Acetaminophen 650 mg Q6HP PRN PO 09/02/24 13:15 Piperacillin Sod/ Tazobactam Sod 100 ml @ 25 mls/hr Q8H IV 09/02/24 20:00 09/04/24 04:16 25 MLS/HR Vancomycin HCl 250 ml @ 200 mls/hr Q12H IV 09/03/24 01:00 09/04/24 01:30 200 MLS/HR Tamsulosin HCl 0.4 mg QPM PO 09/03/24 18:00 09/03/24 17:50 0.4 MG Diagnostic Test (Pha) 1 strip IQ4HR 09/03/24 20:00 09/04/24 04:15 1 STRIP Insulin Human Regular IQ4HR SC 09/03/24 20:00 09/04/24 00:39 2 UNITS Dextrose 50 ml UD PRN IV 09/03/24 17:15 Examination General Appearance: Alert, Oriented X3, Cooperative, No acute distress HEENT: irregular rough skin elevations with central scars or scales noted on the right hoahaoism, Atraumatic, PERRLA, EOMI, Mucous membrane moist/pink Respiratory: Clear to auscultation, Normal air movement Cardiovascular: Regular rate, Normal S1, Normal S2, No murmurs, no chest wall tenderness Abdominal: NO distention, no tenderness, bowel sounds present, no scars noted Extremities: --Rt foot: --> Mild edema, erythema --> ulcer under the foot --> no open sore/ wounds in between his toes Left foot: No abnormalities noted, callus note at mid lateral foot Upper Extremities: irregular rough skin elevations with central scars or scales No clubbing, No cyanosis, No edema, Normal pulses, No tenderness/swelling Skin: No rashes, No breakdown, No significant lesion Neuro: Normal gait, Normal speech, Strength at 5/5 X4 ext, Normal tone, Sensation intact, Cranial nerves 3-12 NL, Reflexes 2+ Psych/Mental Status: Mental status NL, Mood NL laboratory and microbiology Laboratory Tests 09/04/24 05:27 Test 09/04/24 05:27 Range/Units Serum Glucose 145 H 74-106 mg/dL Microbiology Date/Time Source Procedure Growth Status 09/02/24 08:08 Blood Blood Culture - Preliminary NO GROWTH AFTER 48 HOURS OF INCUBATION. Resulted Problem List/Assessment/Plan Problem List/Assessment/Plan Assessment Acute Osteomyelitis of the right lateral foot Diabetic foot ulcer Uncontrolled Diabetes, A1C 7.4 Urinary incontinence UTI History of hypertension History of hyperlipidemia Actinic Keratosis ?SCC Plan --> Continue antibiotic: Vancomycin and Zosyn --> Mild Insulins sliding scale --> PSA lab pending --> For OR today for incision and drainage --> Hydralazine 10mg prn if SBP is > 170 --> Tamsulosin --> Recommend that patient sees a rigging helper outpatient CODE STATUS: FULL Goal of care discussed for more than 45 minute Case and plan discussed with Plan discussed with: Patient My Orders My Orders Orders - PASCUAL SANDHU Procedure Category Date Status Time Mri R Foot Wo Contrast MRI 09/03/24 Resulted 12:52 2 Gm Sodium Diet DIET 09/03/24 Transmitted Lunch Psa Total+% Free LAB 09/03/24 In Process 13:51 Tamsulosin PHA 09/03/24 In Process Hydrochloride (Flomax) 18:00 Podiatry Consult CONS 09/03/24 Transmitted 13:51 * Wound Consult CONS 09/03/24 Transmitted Glucose Blood PHA 09/03/24 In Process (Accu-Chek Comfort 20:00 Insulin R (Human) PHA 09/03/24 In Process (Insulin R) 20:00 Dextrose 50% Syringe PHA 09/03/24 In Process 17:15 Chest Portable XY 09/03/24 Resulted 18:29 Date of Service: Sep 04, 2024 Billing Provider: MUSA CHUNG MD Common Visit Codes: [id number] INP/OBS CARE(HIGH) PASCUAL SANDHU RESIDENT Sep 04, 2024 09:57 MUSA CHUNG MD Sep 04, 2024 20:49
[2024-09-04] MEDS: ceFAZolin 2 GM/D5W100ml 100 ML IV ONE (11:47)
[2024-09-04] MEDS ORDERED: fentaNYL CITRATE 100 MCG/2 ML VL ONE (12:27)
[2024-09-04] MEDS ORDERED: MIDAZOLAM HCL 2MG/2ML 2ml VIAL (1mg/ml) ONE (12:28)
[2024-09-04] MEDS: BUPIVACAINE HCL 0.25% P/F 10 ML VIAL ONE (12:45)
--- NOTE | 2024-09-04 13:04 | DVHOP2 ---
Operative Report - 2 Report Details Date: 09/04/24 Preop Diagnosis: 1. Right foot abscess 2. Right foot osteomyelitis 3. Right foot cellulitis 4. Right foot chronic ulcer Postop Diagnosis: Same as preop Surgeon: Elias Wharton MD Anesthesiologist: See anesthesia Anesthesia: Mac Consent: The patient was informed of the risks and benefits of the procedure. These include but are not limited to complications of anesthesia, postoperative infection, incomplete relief of symptoms, recurrence of symptoms, damage to blood vessels, nerves and tendons, deep venous thrombosis, pulmonary embolism and possible need for repeat surgery in the future. Complications: None Estimated Blood Loss: Minimal Fluids: See anesthesia Findings: Consistent with diagnosis Indications for Surgery: Worsening right foot wound Name of Procedure Performed 1. Right foot I&D to bone (75385) 2. Right foot bone biopsy () Procedure Details Procedure Details: PRE-PROCEDURE INFORMATION: In the pre-op holding area, the extremity to be operated on was clearly marked and the patient verified correct laterality of the marking. The patient was transferred to the OR table and placed in a supine position. A timeout was performed in which identification of the correct patient, procedure, location, and materials was done. The right foot and leg were prepped and draped in normal sterile fashion. DESCRIPTION OF PROCEDURE: Attention was directed to the right where area of fluctuance was noted. An incision was made over this area and was deepened through blunt dissection. The incision was deepened to the level of abscess and bone. Care was taken to the dissection to avoid any neurovascular and tendinous structures. The incision was deepened to the bone, and the abscess appeared to be purulent fluid consistent with pus. The cortices of the bone was then removed with Ta an all necrotic tissue. After the abscess was drained, the area was irrigated with 3 L normal saline using cysto tubing. A bone biopsy was then taken of the right 5th metatarsal which was deepened to the muscle belly and tendons. The bone was then sent to pathology to determine the extent of osteomyelitis. Deep cultures were then obtained from the wound. The area was then inspected and any areas of tracking, especially along the tendons were also drained. The wound was packed with Betadine-soaked gauze and we will need to be closed at a later date. POSTOPERATIVE INFORMATION: The patient tolerated the above noted procedure and anesthesia well and was transferred to the PACU with vital signs stable, and vascular status intact with capillary refill intact to all digits. Patient will continue to be on IV antibiotics. Bone biopsy was taken and IV antibiotics. Patient will return to the OR on for repeat I&D with closure. Condition Good Disposition Still a Patient ELIAS WHARTON DPTabitha Sep 04, 2024 13:04
[2024-09-04] MEDS ORDERED: DexAMETHasone SOD PHOS 10MG/1ML VIAL INJ ONE (13:08)
[2024-09-04] MEDS ORDERED: PROPOFOL 10 MG/ML 20 ML IV ONE (13:08)
[2024-09-05] VITALS (7 sets, daily range): BP systolic 98–137; BP diastolic 57–82; PULSE 65–84; RESP 17–19; TEMP 97.4–97.9; O2SAT 92–96
[2024-09-05 01:06] LABS: PSA Free 2.54 ng/mL; Prostate Specific Antigen 6.8 ng/mL (0.0-4.0)
[2024-09-05 07:46] LABS: Basophils # (auto) 0 10 ^3/uL (0-0.2); Basophils % (auto) 0.2 % (0.0-2.0); Eosinophils # (auto) 0 10 ^3/uL (0-0.8); Eosinophils % (auto) 0.1 % (0.0-7.0); Hematocrit 38.4 % (41.0-53.0); Hemoglobin 13.4 g/dL (13.5-17.5); Lymphocytes # (auto) 1.5 10 ^3/uL (0.4-5.4); Lymphocytes % (auto) 15.3 % (10.0-50.0); Mean Corpuscular Hemoglobin 30.9 pg (28.0-32.0); Mean Corpuscular Hgb Conc. 34.9 g/dL (32.0-36.0); Mean Corpuscular Volume 88.5 fL (80.0-100.0); Monocytes # (auto) 0.9 10 ^3/uL (0-1.3); Monocytes % (auto) 9.5 % (0.0-12.0); Neutrophils # (auto) 7.3 10 ^3/uL (1.6-8.6); Neutrophils % (auto) 74.9 % (37.0-80.0); Nucleated Red Blood Cells % 0.1 %; Platelet Count (auto) 207 10^3/uL (140-450); Red Blood Cells 4.33 10^6/uL (4.5-5.90); Red Cell Distribution Width 13.2 % (11.8-14.3); White Blood Cell 9.8 10^3/uL (4.4-10.8)
[2024-09-05 08:00] LABS: Alanine Aminotransferase 15 U/L (7-40); Alkaline Phosphatase 59 U/L (46-116); Calcium 9.8 mg/dL (8.7-10.4); Carbon Dioxide 25 mmol/L (20-31); Sodium 139 mmol/L (136-145)
[2024-09-05 08:01] LABS: Albumin 3.9 g/dL (3.2-4.8); Anion Gap 7 (5-15); BUN/Creatinine Ratio 13.6 (10.0-20.0); Bilirubin, Total 0.7 mg/dL (0.2-1.0); Blood Urea Nitrogen 11 mg/dL (9-23); Total Protein 6.4 g/dL (5.7-8.2)
[2024-09-05 08:02] LABS: Aspartate Aminotransferase 13 U/L (13-40); Chloride 107 mmol/L (98-107); Glucose 163 mg/dL (74-106)
--- NOTE | 2024-09-05 14:18 | DVHPN2 ---
Subjective This is a 68-year-old male with history of type 2 DM presents to ED with chief complaint of right foot pain associated with swelling that started on progressively worse today. The patient reports coming to emergency room yesterday but due to lobby being full, patient decided to come today. The patient is concerned about his foot as it has not improved and would like to be further evaluated and treated. In addition to this the patient's complaint of urinary retention and may be undergoing a possible urinary tract infection that has been ongoing for several days. The patient will be admitted under hospitalist care to the medical-surgical unit, received IV hydration, IV antibiotics and monitoring of blood sugar levels. The patient denies fever, chills, headache, dizziness, palpitation, chest pain, shortness of breaths nausea, vomiting, abdominal pain, diarrhea, constipation and other associated symptoms. The plan has been discussed with the patient and primary RN in which all questions concerns have been addressed. Changes from previous H/P or p: No Changes Cardiovascular: Edema (To right foot) Genitourinary: Retention Skin: Other (Redness and tenderness to right foot) Objective Vitals Vital Signs Date Time Temp Pulse Resp B/P (MAP) Pulse Ox O2 Delivery O2 Flow Rate FiO2 09/05/24 09:26 97.6 81 17 107/57 (74) 94 97.6 09/04/24 20:00 Room Air* 0 21 Intake/Output Intake and Output 09/05/24 07:00 Intake Total 2068 ml Output Total 1250 ml Balance 818 ml Intake Oral 993 ml IV Total 1075 ml Output Urine Total 1250 ml # Bowel Movements 1 Exam DERMATOLOGIC EXAM: - Skin is dry and cool to the touch dry bilaterally. - Nails 1-5 of the bilateral foot are thickened, discolored, dystrophic, and tender to palpate with subungual debris - Hair loss noted to bilateral feet Wound #1: Location: Right lateral foot Measurements: Length 1cm x width 1cm x depth 1cm. Wound margins: Hyperkeratotic. Wound base: Full thickness. General Appearance: Healthy and bleeding. Probes to Bone: Yes Purulent drainage: Yes Serous drainage: No Erythema: Yes VASCULAR EXAM: - DP and PT pulses are palpable bilaterally. - AIDS COUNSELOR is brisk to all digits. - Feet are cool to touch compared to lower legs bilaterally. NEUROLOGIC EXAM: - Normal light touch sensation to the superficial peroneal, deep peroneal, sural, saphenous, and tibial nerve branches. - Protective sensation is diminished as tested with a 5.07 10g [place]-Reshma bilaterally. MUSCULOSKELETAL EXAM: - No gross deformities - Muscle strength is 5/5 and active motion is pain-free and symmetrical bilaterally - No pain or crepitation with passive range of motion bilaterally to all major pedal joints Medications Current Medications Medications Dose Ordered Sig/Ariana Route Start Time Stop Time Status Last Admin Dose Admin Vancomycin HCl 0 ml @ 0 mls/hr UD IV 09/02/24 13:15 Sodium Chloride 1,000 ml @ 75 mls/hr [id number] IV 09/02/24 13:15 09/05/24 07:55 75 MLS/HR Acetaminophen/ Hydrocodone Bitart 1 tab Q4HP PRN PO 09/02/24 13:15 09/02/24 23:13 1 TAB Zinc Sulfate 220 mg DAILY PO 09/03/24 10:00 09/05/24 09:36 220 MG Ascorbic Acid 500 mg BID PO 09/02/24 22:00 09/05/24 09:36 500 MG Multivitamins 1 tab DAILY PO 09/03/24 10:00 09/05/24 09:36 1 TAB Acetaminophen 650 mg Q6HP PRN PO 09/02/24 13:15 Vancomycin HCl 250 ml @ 200 mls/hr Q12H IV 09/03/24 01:00 09/05/24 13:21 200 MLS/HR Tamsulosin HCl 0.4 mg QPM PO 09/03/24 18:00 09/04/24 18:12 0.4 MG Diagnostic Test (Pha) 1 strip IQ4HR 09/03/24 20:00 09/05/24 12:00 1 STRIP Insulin Human Regular IQ4HR SC 09/03/24 20:00 09/05/24 08:00 2 UNITS Dextrose 50 ml UD PRN IV 09/03/24 17:15 Piperacillin Sod/ Tazobactam Sod 100 ml @ 25 mls/hr Q8H IV 09/05/24 14:30 Laboratory Results Laboratory Tests 09/05/24 07:03 Chemistry Test 09/05/24 07:03 Albumin 3.9 g/dL (3.2-4.8) Calcium Level 9.8 mg/dL (8.7-10.4) Total Protein 6.4 g/dL (5.7-8.2) LFT Test 09/05/24 07:03 Alanine Aminotransferase (ALT) 15 U/L (7-40) Alkaline Phosphatase 59 U/L (46-116) Aspartate Amino Transferase (AST) 13 U/L (13-40) Total Bilirubin 0.7 mg/dL (0.2-1.0) Urinalysis Test 09/02/24 14:47 Urine Color Yellow (Yellow) Urine Clarity Turbid (Clear) H Urine pH 6.0 (5.0-9.0) Urine Specific [place] 1.021 (1.001-1.035) Urine Protein Trace (Negative) H Urine Ketones 1+ (Negative) H Urine Blood 1+ /uL (Negative) H Urine Nitrite 2+ (Negative) H Urine Bilirubin Negative (Negative) Urine Urobilinogen Normal mg/dL (Negative) Urine Leukocyte Esterase 3+ /uL (Negative) Urine RBC 7 /hpf (0 - 3) Urine WBC 265 /hpf (0 - 3) Urine Squamous Epithelial Cells Few /hpf (<5) Urine Bacteria Few /hpf (None Seen) H Urine Glucose Normal mg/dL (Normal) Microbiology Microbiology Date/Time Source Procedure Growth Status 09/04/24 13:17 Foot Right Gram Stain - Final Resulted 09/04/24 13:17 Foot Right Anaerobic Culture - Preliminary Resulted 09/04/24 13:17 Foot Right Aerobic Culture - Preliminary Resulted 09/02/24 08:08 Blood Blood Culture - Preliminary NO GROWTH AFTER 72 HOURS OF INCUBATION. Resulted Assessment/Plan Assessment/Plan ASSESSMENT: Patient is a 68 year old seen on the floor 1 day s/p from an incision and drainage PLAN: - The patients chart was reviewed, clinical findings were discussed with the patient, the etiologies of the conditions were discussed in detail, and a treatment plan was agreed to at this time, with both oral and written instructions provided. - reviewed advanced imaging - discussed plan is to perform an incision and drainage - patient will be NPO at midnight - take him to the OR tomorrow - patient will return to the OR for closure - can weightbear as tolerated in postoperative shoe All questions were answered and concerns addressed to the patient's satisfaction. The patient was given the phone number to the clinic and was told how to make contact with the clinic should any concerns or questions arise. Patient understands that if any questions or concerns arise prior to the next appointment, we should be contacted immediately. FOLLOW-UP: Continue to follow while inpatient Plan discussed with: Patient My Orders Orders - ELIAS WHARTON DPM Procedure Category Date Status Time 2 Gm Sodium Diet DIET 09/04/24 Transmitted Dinner Npo After Midnight DIET 09/05/24 Transmitted Dinner Obtain Consent For: ORDERS 09/05/24 Transmitted 14:07 Problem List: (1) Diabetic foot (2) Diabetic foot ulcer (3) Diabetic foot infection Date of Service: Sep 05, 2024 Billing Provider: ELIAS WHARTON DPM Common Visit Codes: [id number] INP/OBS CARE(MOD) ELIAS WHARTON DPM Sep 05, 2024 14:18
[2024-09-05] MEDS: PIPERACILLIN-TAZOB 3.375GM 100 ML IV SCH (15:05)
--- NOTE | 2024-09-05 15:47 | DVHPNRES ---
Progress Note Date Seen: Sep 05, 2024 Resident Creating Document: PASCUAL SANDHU Medical Necessity Reason Pt with a Central, PICC or Fol: No Medical Necessity Reason Osteomyelitis of the right foot Subjective Review of Systems PN 09/03/2024: Patient seen and examined today. He has no new complaint. He did mentioned that his right foot was swollen however he is not aware of any ulcers or any open wounds. Still vitals stable and within normal limits. Lab shows A1c :7.4; CT shows cellulitis and MRI of the foot shows: Skin ulceration on the lateral and plantar aspect of the 5th MTP joint with a thin underlying 3 x 0.5 cm subcutaneous fluid collection extending to underlying 5th metatarsal head with evidence of developing acute osteomyelitis. Mild dorsal foot subcutaneous edema. PN 09/04/2024: Patient is seen and examined today at the bedside. He is doing well. He has no new complaint. He was seen yesterday by the maintenance mechanic millwright who has reviewed the MRI findings with him. MRI showed evidence of developing acute osteomyelitis of the right foot. Patient has therefore been kept NPO for OR today for probably incision and drainage.His vitals and labs are within normal limits. PN09/05/2024: Patient is seen and examined today at the bedside. He is doing well. He has no new complaint. Status post incision and drainage yesterday. Patient is doing well today has no complaint. He was seen by the maintenance mechanic millwright today who taken back to the OR tomorrow for 2nd round the I and D. currently pending the culture from the wound from the incision and drainage. And we will also put in an order for PICC line given that the patient will likely go home with a 6 weeks of antibiotics for the osteomyelitis. Blood work today is completely unremarkable and his vitals are also stable. Free PSA: 2.54, % free PSA; 373.8,Total PSA: 6.8 Objective vital signs Vital Sign Date Time Temp Pulse Resp B/P (MAP) Pulse Ox O2 Delivery O2 Flow Rate FiO2 09/05/24 13:00 97.8 74 17 123/81 (95) 96 97.8 09/04/24 20:00 Room Air* 0 21 Total Intake and Output 09/04/24 09/04/24 09/05/24 15:00 23:00 07:00 Intake Total 100 ml 400 ml 1568 ml Output Total 600 ml 650 ml Balance 100 ml -200 ml 918 ml medications Current Medications Medications Dose Ordered Sig/Ariana Route Start Time Stop Time Status Last Admin Dose Admin Vancomycin HCl 0 ml @ 0 mls/hr UD IV 09/02/24 13:15 Sodium Chloride 1,000 ml @ 75 mls/hr [id number] IV 09/02/24 13:15 09/05/24 07:55 75 MLS/HR Acetaminophen/ Hydrocodone Bitart 1 tab Q4HP PRN PO 09/02/24 13:15 09/02/24 23:13 1 TAB Zinc Sulfate 220 mg DAILY PO 09/03/24 10:00 09/05/24 09:36 220 MG Ascorbic Acid 500 mg BID PO 09/02/24 22:00 09/05/24 09:36 500 MG Multivitamins 1 tab DAILY PO 09/03/24 10:00 09/05/24 09:36 1 TAB Acetaminophen 650 mg Q6HP PRN PO 09/02/24 13:15 Vancomycin HCl 250 ml @ 200 mls/hr Q12H IV 09/03/24 01:00 09/05/24 13:21 200 MLS/HR Tamsulosin HCl 0.4 mg QPM PO 09/03/24 18:00 09/04/24 18:12 0.4 MG Diagnostic Test (Pha) 1 strip IQ4HR 09/03/24 20:00 09/05/24 12:00 1 STRIP Insulin Human Regular IQ4HR SC 09/03/24 20:00 09/05/24 08:00 2 UNITS Dextrose 50 ml UD PRN IV 09/03/24 17:15 Piperacillin Sod/ Tazobactam Sod 100 ml @ 25 mls/hr Q8H IV 09/05/24 14:30 09/05/24 15:05 25 MLS/HR Examination General Appearance: Alert, Oriented X3, Cooperative, No acute distress HEENT: irregular rough skin elevations with central scars or scales noted on the right pentecostalism, Atraumatic, PERRLA, EOMI, Mucous membrane moist/pink Respiratory: Clear to auscultation, Normal air movement Cardiovascular: Regular rate, Normal S1, Normal S2, No murmurs, no chest wall tenderness Abdominal: NO distention, no tenderness, bowel sounds present, no scars noted Extremities: --Rt foot: --> s/p I&D --> Mild edema, erythema --> wrapped in bandage Left foot: No abnormalities noted, callus note at mid lateral foot Upper Extremities: irregular rough skin elevations with central scars or scales No clubbing, No cyanosis, No edema, Normal pulses, No tenderness/swelling Skin: No rashes, No breakdown, No significant lesion Neuro: Normal gait, Normal speech, Strength at 5/5 X4 ext, Normal tone, Sensation intact, Cranial nerves 3-12 NL, Reflexes 2+ Psych/Mental Status: Mental status NL, Mood NL laboratory and microbiology Laboratory Tests 09/05/24 07:03 Test 09/05/24 07:03 Range/Units Serum Glucose 163 H 74-106 mg/dL Microbiology Date/Time Source Procedure Growth Status 09/04/24 13:17 Foot Right Gram Stain - Final Resulted 09/04/24 13:17 Foot Right Anaerobic Culture - Preliminary Resulted 09/04/24 13:17 Foot Right Aerobic Culture - Preliminary Resulted 09/02/24 08:08 Blood Blood Culture - Preliminary NO GROWTH AFTER 72 HOURS OF INCUBATION. Resulted Problem List/Assessment/Plan Problem List/Assessment/Plan Assessment Acute Osteomyelitis of the right lateral foot s/p I & D Diabetic foot ulcer Uncontrolled Diabetes, A1C 7.4 Urinary incontinence UTI Actinic Keratosis ?SCC like BPH, (PSA : 6.8) History of hypertension History of hyperlipidemia Plan --> Continue antibiotic: Vancomycin and Zosyn --> Mild Insulins sliding scale --> PSA lab pending --> For OR tomorrow for repeat incision and drainage --> Hydralazine 10mg prn if SBP is > 170 --> Tamsulosin --> Recommend that patient sees a hosiery mater outpatient --> Order placed for PICC line CODE STATUS: FULL Goal of care discussed for more than 45 minute Case and plan discussed with Plan discussed with: Patient My Orders My Orders Orders - PASCUAL SANDHU Procedure Category Date Status Time PICC BD 09/05/24 Transmitted 14:05 Date of Service: Sep 05, 2024 Billing Provider: MUSA CHUNG MD Common Visit Codes: [id number] INP/OBS CARE(HIGH) PASCUAL SANDHU Sep 05, 2024 15:47 MUSA CHUNG MD Sep 05, 2024 22:17
[2024-09-05] MEDS: ACCU-CHEK COMFORT CURVE STRIP VI SCH (20:58)
[2024-09-05] MEDS: InsuLIN REG 1unit/0.01ml Soln (100units/ml) SC SCH (21:22)
[2024-09-06] VITALS (9 sets, daily range): BP systolic 110–146; BP diastolic 67–86; PULSE 68–100; RESP 18–21; TEMP 97.7–98.9; O2SAT 93–96
[2024-09-06 07:05] LABS: Basophils # (auto) 0.1 10 ^3/uL (0-0.2); Basophils % (auto) 0.6 % (0.0-2.0); Eosinophils # (auto) 0.1 10 ^3/uL (0-0.8); Eosinophils % (auto) 1.7 % (0.0-7.0); Hematocrit 38.2 % (41.0-53.0); Hemoglobin 13.2 g/dL (13.5-17.5); Lymphocytes # (auto) 1.9 10 ^3/uL (0.4-5.4); Lymphocytes % (auto) 23.3 % (10.0-50.0); Mean Corpuscular Hgb Conc. 34.6 g/dL (32.0-36.0); Mean Corpuscular Volume 89.7 fL (80.0-100.0); Monocytes # (auto) 0.8 10 ^3/uL (0-1.3); Monocytes % (auto) 9.7 % (0.0-12.0); Neutrophils # (auto) 5.2 10 ^3/uL (1.6-8.6); Neutrophils % (auto) 64.7 % (37.0-80.0); Platelet Count (auto) 220 10^3/uL (140-450); Red Blood Cells 4.26 10^6/uL (4.5-5.90); Red Cell Distribution Width 13.3 % (11.8-14.3); White Blood Cell 8.1 10^3/uL (4.4-10.8)
[2024-09-06 07:10] LABS: Alanine Aminotransferase 18 U/L (7-40); Alkaline Phosphatase 59 U/L (46-116); Anion Gap 5 (5-15); Aspartate Aminotransferase 17 U/L (13-40); BUN/Creatinine Ratio 11.2 (10.0-20.0); Bilirubin, Total 0.7 mg/dL (0.2-1.0); Blood Urea Nitrogen 10 mg/dL (9-23); Calcium 9.6 mg/dL (8.7-10.4); Carbon Dioxide 27 mmol/L (20-31); Glucose 96 mg/dL (74-106); Potassium 3.9 mmol/L (3.5-5.1); Sodium 140 mmol/L (136-145); Total Protein 6.3 g/dL (5.7-8.2)
[2024-09-06 07:15] LABS: Chloride 108 mmol/L (98-107)
--- NOTE | 2024-09-06 10:52 | DVHPN2 ---
Subjective This is a 68-year-old male with history of type 2 DM presents to ED with chief complaint of right foot pain associated with swelling that started on progressively worse today. The patient reports coming to emergency room yesterday but due to lobby being full, patient decided to come today. The patient is concerned about his foot as it has not improved and would like to be further evaluated and treated. In addition to this the patient's complaint of urinary retention and may be undergoing a possible urinary tract infection that has been ongoing for several days. The patient will be admitted under hospitalist care to the medical-surgical unit, received IV hydration, IV antibiotics and monitoring of blood sugar levels. The patient denies fever, chills, headache, dizziness, palpitation, chest pain, shortness of breaths nausea, vomiting, abdominal pain, diarrhea, constipation and other associated symptoms. The plan has been discussed with the patient and primary RN in which all questions concerns have been addressed. Changes from previous H/P or p: No Changes Cardiovascular: Edema (To right foot) Genitourinary: Retention Skin: Other (Redness and tenderness to right foot) Objective Vitals Vital Signs Date Time Temp Pulse Resp B/P (MAP) Pulse Ox O2 Delivery O2 Flow Rate FiO2 09/06/24 08:47 97.9 71 18 116/76 (89) 95 97.9 09/05/24 20:00 Room Air* 0 21 Intake/Output Intake and Output 09/06/24 07:00 Intake Total 1958 ml Output Total 1800 ml Balance 158 ml Intake Oral 1358 ml IV Total 600 ml Output Urine Total 1800 ml # Bowel Movements 1 Exam DERMATOLOGIC EXAM: - Skin is dry and cool to the touch dry bilaterally. - Nails 1-5 of the bilateral foot are thickened, discolored, dystrophic, and tender to palpate with subungual debris - Hair loss noted to bilateral feet Wound #1: Location: Right lateral foot Measurements: Length 1cm x width 1cm x depth 1cm. Wound margins: Hyperkeratotic. Wound base: Full thickness. General Appearance: Healthy and bleeding. Probes to Bone: Yes Purulent drainage: Yes Serous drainage: No Erythema: Yes VASCULAR EXAM: - DP and PT pulses are palpable bilaterally. - CATHEAD OPERATOR is brisk to all digits. - Feet are cool to touch compared to lower legs bilaterally. NEUROLOGIC EXAM: - Normal light touch sensation to the superficial peroneal, deep peroneal, sural, saphenous, and tibial nerve branches. - Protective sensation is diminished as tested with a 5.07 10g [place]-Reshma bilaterally. MUSCULOSKELETAL EXAM: - No gross deformities - Muscle strength is 5/5 and active motion is pain-free and symmetrical bilaterally - No pain or crepitation with passive range of motion bilaterally to all major pedal joints Medications Current Medications Medications Dose Ordered Sig/Ariana Route Start Time Stop Time Status Last Admin Dose Admin Vancomycin HCl 0 ml @ 0 mls/hr UD IV 09/02/24 13:15 Sodium Chloride 1,000 ml @ 75 mls/hr [id number] IV 09/02/24 13:15 09/05/24 07:55 75 MLS/HR Acetaminophen/ Hydrocodone Bitart 1 tab Q4HP PRN PO 09/02/24 13:15 09/02/24 23:13 1 TAB Zinc Sulfate 220 mg DAILY PO 09/03/24 10:00 09/05/24 09:36 220 MG Ascorbic Acid 500 mg BID PO 09/02/24 22:00 09/05/24 20:55 500 MG Multivitamins 1 tab DAILY PO 09/03/24 10:00 09/05/24 09:36 1 TAB Acetaminophen 650 mg Q6HP PRN PO 09/02/24 13:15 Tamsulosin HCl 0.4 mg QPM PO 09/03/24 18:00 09/05/24 18:00 0.4 MG Dextrose 50 ml UD PRN IV 09/03/24 17:15 Piperacillin Sod/ Tazobactam Sod 100 ml @ 25 mls/hr Q8H IV 09/05/24 14:30 09/06/24 06:29 25 MLS/HR Diagnostic Test (Pha) 1 strip ACHS 09/05/24 22:00 09/06/24 06:43 1 STRIP Insulin Human Regular ACHS SC 09/05/24 22:00 09/05/24 21:22 8 UNITS Vancomycin HCl 250 ml @ 200 mls/hr Q10H IV 09/06/24 12:00 Laboratory Results Laboratory Tests 09/06/24 05:37 Chemistry Test 09/06/24 05:37 Albumin 4.0 g/dL (3.2-4.8) Calcium Level 9.6 mg/dL (8.7-10.4) Total Protein 6.3 g/dL (5.7-8.2) LFT Test 09/06/24 05:37 Alanine Aminotransferase (ALT) 18 U/L (7-40) Alkaline Phosphatase 59 U/L (46-116) Aspartate Amino Transferase (AST) 17 U/L (13-40) Total Bilirubin 0.7 mg/dL (0.2-1.0) Urinalysis Test 09/02/24 14:47 Urine Color Yellow (Yellow) Urine Clarity Turbid (Clear) H Urine pH 6.0 (5.0-9.0) Urine Specific [place] 1.021 (1.001-1.035) Urine Protein Trace (Negative) H Urine Ketones 1+ (Negative) H Urine Blood 1+ /uL (Negative) H Urine Nitrite 2+ (Negative) H Urine Bilirubin Negative (Negative) Urine Urobilinogen Normal mg/dL (Negative) Urine Leukocyte Esterase 3+ /uL (Negative) Urine RBC 7 /hpf (0 - 3) Urine WBC 265 /hpf (0 - 3) Urine Squamous Epithelial Cells Few /hpf (<5) Urine Bacteria Few /hpf (None Seen) H Urine Glucose Normal mg/dL (Normal) Microbiology Microbiology Date/Time Source Procedure Growth Status 09/04/24 13:17 Foot Right Gram Stain - Final Resulted 09/04/24 13:17 Foot Right Anaerobic Culture - Preliminary Resulted 09/04/24 13:17 Foot Right Aerobic Culture - Preliminary Resulted 09/02/24 08:08 Blood Blood Culture - Preliminary NO GROWTH AFTER 72 HOURS OF INCUBATION. Resulted Assessment/Plan Assessment/Plan ASSESSMENT: Patient is a 68 year old seen on the floor 2 day s/p from an incision and drainage PLAN: - The patients chart was reviewed, clinical findings were discussed with the patient, the etiologies of the conditions were discussed in detail, and a treatment plan was agreed to at this time, with both oral and written instructions provided. - reviewed advanced imaging - discussed plan is to perform an incision and drainage - patient will be NPO at midnight - take him to the OR today - can weightbear as tolerated in postoperative shoe All questions were answered and concerns addressed to the patient's satisfaction. The patient was given the phone number to the clinic and was told how to make contact with the clinic should any concerns or questions arise. Patient understands that if any questions or concerns arise prior to the next appointment, we should be contacted immediately. FOLLOW-UP: Continue to follow while inpatient Plan discussed with: Patient My Orders Orders - ELIAS WHARTON DPM Procedure Category Date Status Time Obtain Consent For: ORDERS 09/05/24 Transmitted 14:07 Problem List: (1) Diabetic foot (2) Diabetic foot ulcer (3) Diabetic foot infection Date of Service: Sep 06, 2024 Billing Provider: ELIAS WHARTON DPM Common Visit Codes: [id number] INP/OBS CARE(MOD) ELIAS WHARTON DPM Sep 06, 2024 10:52
[2024-09-06] MEDS: BUPIVACAINE HCL 0.25% P/F 10 ML VIAL ONE (10:59)
[2024-09-06] MEDS: VANCOMYCIN HCL 1000 MG VL ONE (11:39)
--- NOTE | 2024-09-06 11:50 | DVHOP2 ---
Operative Report - 2 Report Details Date: 09/06/24 Preop Diagnosis: 1. Right foot abscess 2. Right foot osteomyelitis 3. Right foot cellulitis 4. Right foot chronic ulcer Postop Diagnosis: Same as preop Surgeon: Elias Wharton MD Anesthesiologist: See anesthesia Anesthesia: Mac Consent: The patient was informed of the risks and benefits of the procedure. These include but are not limited to complications of anesthesia, postoperative infection, incomplete relief of symptoms, recurrence of symptoms, damage to blood vessels, nerves and tendons, deep venous thrombosis, pulmonary embolism and possible need for repeat surgery in the future. Complications: None Estimated Blood Loss: Minimal Fluids: See anesthesia Findings: Consistent with diagnosis Indications for Surgery: Worsening foot wound Name of Procedure Performed 1. Right foot I&D to bone (69329) 2. Right foot bone biopsy () 3. Right foot delayed closure (96310) Procedure Details Procedure Details: PRE-PROCEDURE INFORMATION: In the pre-op holding area, the extremity to be operated on was clearly marked and the patient verified correct laterality of the marking. The patient was transferred to the OR table and placed in a supine position. A timeout was performed in which identification of the correct patient, procedure, location, and materials was done. The right foot and leg were prepped and draped in normal sterile fashion. DESCRIPTION OF PROCEDURE: Attention was directed to the right where previous incision was made. An incision was made over this area and was deepened through blunt dissection. The incision was deepened to the level of abscess and bone. Care was taken to the dissection to avoid any neurovascular and tendinous structures. The incision was deepened to the bone, and the abscess appeared to be purulent fluid consistent with pus. The cortices of the bone was then removed with Ta an all necrotic tissue. After the abscess was drained, the area was irrigated with 3 L normal saline using cysto tubing. A bone biopsy was then taken of the right 5th metatarsal head which was deepened to the muscle belly and tendons. The bone was then sent to pathology to determine the extent of osteomyelitis. The area was then inspected and any areas of tracking, especially along the tendons were also drained. Delayed closure was then performed with 2-0 nylon. POSTOPERATIVE INFORMATION: The patient tolerated the above noted procedure and anesthesia well and was transferred to the PACU with vital signs stable, and vascular status intact with capillary refill intact to all digits. Patient will continue to be on IV antibiotics. Patient will need 6 weeks of IV antibiotics. Patient can weightbear as tolerated with postop shoe. Patient can discharge when deemed medically stable. Condition Good Disposition Still a Patient ELIAS WHARTON DPM Sep 06, 2024 11:50
[2024-09-06] MEDS: VANCOMYCIN 1.25GM/250ML 250 ML IV SCH (12:00)
[2024-09-06] MEDS ORDERED: HYDROmorphone HCL 2 MG/ML VL/or syr IV PRN (12:00)
[2024-09-06] MEDS ORDERED: MORPHINE SULFATE 4 MG/ML SYR/VIAL IV PRN (12:00)
[2024-09-06] MEDS ORDERED: MIDAZOLAM HCL 2MG/2ML 2ml VIAL (1mg/ml) IV PRN (12:00)
[2024-09-06] MEDS: ONDANSETRON HCL 4 MG/2 ML VIAL IV ONE (12:00)
[2024-09-06] MEDS ORDERED: hydrALAZINE HCL 20 MG/ML VL IV PRN (12:00)
[2024-09-06] MEDS ORDERED: ePHEDrine SULFATE 50 MG/ML AMP IV PRN (12:00)
--- NOTE | 2024-09-06 21:29 | DVHPNRES ---
Progress Note Date Seen: Sep 06, 2024 Resident Creating Document: PASCUAL SANDHU RESIDENT Medical Necessity Reason Pt with a Central, PICC or Fol: No Medical Necessity Reason Osteomyelitis status post incision and drainage Subjective Review of Systems Examined today by the bedside his was present. He is status post a repeat in incision and drainage without any complaint. Culture of the of the site infection site grew aerobic Culture Preliminary Report Rare growth: Possible Staphylococcus aureus. Identification and Susceptibilty test to follow. The patient will be going home with a PICC line for 6 weeks antibiotics. Discuss the plan and follow up the patient in the morning. Patient also need home health to monitor IV antibiotics. Objective vital signs Vital Sign Date Time Temp Pulse Resp B/P (MAP) Pulse Ox O2 Delivery O2 Flow Rate FiO2 09/06/24 16:34 98.9 90 19 130/83 (99) 94 98.9 09/06/24 11:50 Mask 5.0 09/06/24 11:50 95 Total Intake and Output 09/05/24 09/05/24 09/06/24 15:00 23:00 07:00 Intake Total 1108 ml 850 ml Output Total 1000 ml 800 ml Balance 108 ml 50 ml medications Current Medications Medications Dose Ordered Sig/Ariana Route Start Time Stop Time Status Last Admin Dose Admin Vancomycin HCl 0 ml @ 0 mls/hr UD IV 09/02/24 13:15 Sodium Chloride 1,000 ml @ 75 mls/hr [id number] IV 09/02/24 13:15 09/05/24 07:55 75 MLS/HR Acetaminophen/ Hydrocodone Bitart 1 tab Q4HP PRN PO 09/02/24 13:15 09/02/24 23:13 1 TAB Zinc Sulfate 220 mg DAILY PO 09/03/24 10:00 09/05/24 09:36 220 MG Ascorbic Acid 500 mg BID PO 09/02/24 22:00 09/05/24 20:55 500 MG Multivitamins 1 tab DAILY PO 09/03/24 10:00 09/05/24 09:36 1 TAB Acetaminophen 650 mg Q6HP PRN PO 09/02/24 13:15 Tamsulosin HCl 0.4 mg QPM PO 09/03/24 18:00 09/06/24 18:22 0.4 MG Dextrose 50 ml UD PRN IV 09/03/24 17:15 Diagnostic Test (Pha) 1 strip ACHS 1/15/25 22:00 09/06/24 17:00 1 STRIP Insulin Human Regular ACHS SC 09/05/24 22:00 09/06/24 17:00 6 UNITS Vancomycin HCl 250 ml @ 200 mls/hr Q10H IV 09/06/24 12:00 09/06/24 12:55 200 MLS/HR Piperacillin Sod/ Tazobactam Sod 100 ml @ 25 mls/hr Q6HR IV 09/07/24 00:00 Examination General Appearance: Alert, Oriented X3, Cooperative, No acute distress HEENT: irregular rough skin elevations with central scars or scales noted on the right uatsdin, Atraumatic, PERRLA, EOMI, Mucous membrane moist/pink Respiratory: Clear to auscultation, Normal air movement Cardiovascular: Regular rate, Normal S1, Normal S2, No murmurs, no chest wall tenderness Abdominal: NO distention, no tenderness, bowel sounds present, no scars noted Extremities: --Rt foot: --> s/p I&D --> Mild edema, erythema --> wrapped in bandage Left foot: No abnormalities noted, callus note at mid lateral foot Upper Extremities: irregular rough skin elevations with central scars or scales No clubbing, No cyanosis, No edema, Normal pulses, No tenderness/swelling Skin: No rashes, No breakdown, No significant lesion Neuro: Normal gait, Normal speech, Strength at 5/5 X4 ext, Normal tone, Sensation intact, Cranial nerves 3-12 NL, Reflexes 2+ Psych/Mental Status: Mental status NL, Mood NL laboratory and microbiology Laboratory Tests 09/06/24 05:37 Test 09/06/24 05:37 Range/Units Serum Glucose 96 74-106 mg/dL Microbiology Date/Time Source Procedure Growth Status 09/04/24 13:17 Foot Right Gram Stain - Final Resulted 09/04/24 13:17 Foot Right Anaerobic Culture - Preliminary Resulted 09/04/24 13:17 Foot Right Aerobic Culture - Preliminary Resulted 09/02/24 08:08 Blood Blood Culture - Preliminary NO GROWTH AFTER 72 HOURS OF INCUBATION. Resulted Problem List/Assessment/Plan Problem List/Assessment/Plan Assessment Acute Osteomyelitis of the right lateral foot s/p I & D Diabetic foot ulcer Uncontrolled Diabetes, A1C 7.4 Urinary incontinence UTI Actinic Keratosis ?SCC like BPH, (PSA : 6.8) History of hypertension History of hyperlipidemia Plan --> Continue antibiotic: Vancomycin and Zosyn --> Mild Insulins sliding scale --> PSA lab pending --> For OR tomorrow for repeat incision and drainage --> Hydralazine 10mg prn if SBP is > 170 --> Tamsulosin --> Recommend that patient sees a registrar museum outpatient --> Order placed for PICC line for IV antibiotics --> explained in details the the purpose of the PICC line and why the patient needed to have a PICC line and to be on antibiotics for 6 weeks. --> Pending susceptibility report CODE STATUS: FULL Goal of care discussed for more than 45 minute Case and plan discussed with Plan discussed with: Patient, Spouse My Orders My Orders Orders - PASCUAL SANDHU Procedure Category Date Status Time 2 Gm Sodium Diet DIET 09/06/24 Transmitted Breakfast Dietary NOTICE 09/06/24 Transmitted Recommendations 13:02 PTPTT LAB 09/07/24 Verified 04:00 Prothrombin Time W/ LAB 09/07/24 Verified INR 04:00 Dietary Evaluation Review Comments: Consider CECI 1 pkt BID for wound Expected Outcomes/Goals: F/U in 3-5 days Date of Service: Sep 06, 2024 Billing Provider: MUSA CHUNG MD Common Visit Codes: [id number] INP/OBS CARE(HIGH) Date of Service: Sep 06, 2024 Billing Provider: MUSA CHUNG MD Common Visit Codes: [id number] INP/OBS CARE(HIGH) PASCUAL SANDHU Sep 06, 2024 21:29 RUDY NIETO MD Sep 07, 2024 18:28 MUSA CHUNG MD Sep 08, 2024 08:07
[2024-09-07] VITALS (8 sets, daily range): BP systolic 119–156; BP diastolic 72–98; PULSE 69–99; RESP 17–20; TEMP 97.3–98.2; O2SAT 94–97
[2024-09-07] MEDS: PIPERACILLIN-TAZOB 3.375GM 100 ML IV SCH (00:04)
[2024-09-07 07:37] LABS: INR 1.08 (0.9-1.15); Partial Thromboplastin Time 25.9 SEC (24.5-34.5); Prothrombin Time 11.4 sec (9.3-11.8)
[2024-09-07 07:41] LABS: Anion Gap 9 (5-15); Carbon Dioxide 23 mmol/L (20-31); Chloride 106 mmol/L (98-107); Potassium 3.7 mmol/L (3.5-5.1); Sodium 138 mmol/L (136-145)
[2024-09-07 07:42] LABS: Calcium 9.9 mg/dL (8.7-10.4)
[2024-09-07 07:47] LABS: BUN/Creatinine Ratio 11.2 (10.0-20.0); Blood Urea Nitrogen 10 mg/dL (9-23)
[2024-09-07 07:50] LABS: Glucose 172 mg/dL (74-106)
[2024-09-07] MEDS: LIDOCAINE 1% (LOCAL ANESTH.) PF 5ml SDV ID ONE (12:30)
--- NOTE | 2024-09-07 19:07 | DVHPNRES ---
Progress Note Date Seen: Sep 07, 2024 Resident Creating Document: PASCUAL SANDHU RESIDENT Medical Necessity Reason Pt with a Central, PICC or Fol: No Medical Necessity Reason osteomyelitis pending susceptibility pending Subjective Review of Systems Patient seen and examined at the bed side. He is doing well, moving and how no fever, chills or malaise He had a picc line pleased today for antibiotic iv antibiotic for 4-6 weeks. Pending susceptibility report. Objective vital signs Vital Sign Date Time Temp Pulse Resp B/P (MAP) Pulse Ox O2 Delivery O2 Flow Rate FiO2 09/07/24 17:00 97.3 87 18 137/77 (97) 95 97.3 09/06/24 20:00 Room Air* 0 21 Total Intake and Output 09/06/24 09/06/24 09/07/24 15:00 23:00 07:00 Intake Total 100 ml 1230 ml 100 ml Output Total 200 ml 1860 ml 800 ml Balance -100 ml -630 ml -700 ml medications Current Medications Medications Dose Ordered Sig/Ariana Route Start Time Stop Time Status Last Admin Dose Admin Vancomycin HCl 0 ml @ 0 mls/hr UD IV 09/02/24 13:15 Sodium Chloride 1,000 ml @ 75 mls/hr [id number] IV 09/02/24 13:15 09/07/24 14:18 75 MLS/HR Acetaminophen/ Hydrocodone Bitart 1 tab Q4HP PRN PO 09/02/24 13:15 09/02/24 23:13 1 TAB Zinc Sulfate 220 mg DAILY PO 09/03/24 10:00 09/07/24 09:37 220 MG Ascorbic Acid 500 mg BID PO 09/02/24 22:00 09/07/24 09:37 500 MG Multivitamins 1 tab DAILY PO 09/03/24 10:00 09/07/24 09:37 1 TAB Acetaminophen 650 mg Q6HP PRN PO 09/02/24 13:15 Tamsulosin HCl 0.4 mg QPM PO 09/03/24 18:00 09/07/24 18:08 0.4 MG Dextrose 50 ml UD PRN IV 09/03/24 17:15 Diagnostic Test (Pha) 1 strip ACHS 09/05/24 22:00 09/07/24 18:12 1 STRIP Insulin Human Regular ACHS SC 09/05/24 22:00 09/07/24 18:18 3 UNITS Vancomycin HCl 250 ml @ 200 mls/hr Q10H IV 09/06/24 12:00 09/07/24 18:08 200 MLS/HR Piperacillin Sod/ Tazobactam Sod 100 ml @ 25 mls/hr Q6HR IV 09/07/24 00:00 09/07/24 12:56 25 MLS/HR Sodium Chloride 10 ml QSHIFT@10,22 IV 09/07/24 22:00 Examination General Appearance: Alert, Oriented X3, Cooperative, No acute distress HEENT: irregular rough skin elevations with central scars or scales noted on the right [employer], Atraumatic, PERRLA, EOMI, Mucous membrane moist/pink Respiratory: Clear to auscultation, Normal air movement Cardiovascular: Regular rate, Normal S1, Normal S2, No murmurs, no chest wall tenderness Abdominal: NO distention, no tenderness, bowel sounds present, no scars noted Extremities: --Rt foot: --> s/p I&Dx2 --> Mild edema, erythema --> wrapped in bandage Left foot: No abnormalities noted, callus note at mid lateral foot Upper Extremities: irregular rough skin elevations with central scars or scales No clubbing, No cyanosis, No edema, Normal pulses, No tenderness/swelling Skin: No rashes, No breakdown, No significant lesion Neuro: Normal gait, Normal speech, Strength at 5/5 X4 ext, Normal tone, Sensation intact, Cranial nerves 3-12 NL, Reflexes 2+ Psych/Mental Status: Mental status NL, Mood NL laboratory and microbiology Laboratory Tests 09/07/24 05:48 09/06/24 05:37 Test 09/07/24 05:48 Range/Units Serum Glucose 172 H 74-106 mg/dL Microbiology Date/Time Source Procedure Growth Status 09/04/24 13:17 Foot Right Gram Stain - Final Resulted 09/04/24 13:17 Foot Right Anaerobic Culture - Preliminary Resulted 09/04/24 13:17 Foot Right Aerobic Culture - Preliminary Resulted 09/02/24 08:08 Blood Blood Culture - Final NO GROWTH AFTER 5 DAYS OF INCUBATION. Complete Problem List/Assessment/Plan Problem List/Assessment/Plan Assessment Acute Osteomyelitis of the right lateral foot s/p I & D Diabetic foot ulcer Uncontrolled Diabetes, A1C 7.4 Urinary incontinence UTI Actinic Keratosis ?SCC like BPH, (PSA : 6.8) History of hypertension History of hyperlipidemia Plan --> Continue antibiotic: Vancomycin and Zosyn --> Mild Insulins sliding scale --> PSA lab pending --> For OR tomorrow for repeat incision and drainage --> Hydralazine 10mg prn if SBP is > 170 --> Tamsulosin --> Recommend that patient sees a ordnance officer outpatient -->PICC line for IV antibiotics placed today --> explained in details the the purpose of the PICC line and why the patient needed to have a PICC line and to be on antibiotics for 6 weeks. --> Pending susceptibility report CODE STATUS: FULL Goal of care discussed for more than 25 minute Case and plan discussed with Plan discussed with: Patient My Orders My Orders Orders - PASCUAL SANDHU Procedure Category Date Status Time Us Guided Vascular US 09/07/24 Taken Access 12:29 Nursing Protocol Picc SAMMY 09/07/24 In Process 12:29 Change Dressing Prn [facility] 09/07/24 In Process 12:29 Sodium Chloride Lock PHA 09/07/24 In Process (Saline Lock Ns) 22:00 Do Not Use Picc For [facility] 09/07/24 In Process Blood Cult 12:29 May Draw Blood From [facility] 09/07/24 In Process Picc 12:29 Ok To Use Picc SAMMY 09/07/24 In Process 12:29 Change Picc Dressing [facility] 09/07/24 In Process Q7 Days 12:29 Dietary Evaluation Review Comments: Consider CECI 1 pkt BID for wound Expected Outcomes/Goals: F/U in 3-5 days PASCUAL SANDHU RESIDENT Sep 07, 2024 19:07
[2024-09-07] MEDS: SODIUM CHLOR 0.9% PF (SALINE LOCK) 10ML VIAL/SYR IV SCH (21:17)
[2024-09-08] VITALS (7 sets, daily range): BP systolic 115–134; BP diastolic 69–82; PULSE 71–89; RESP 16–20; TEMP 97.7–98.5; O2SAT 93–97
[2024-09-08] MEDS: PNEUMOCOCCAL VACC POLYS 25 MCG/0.5 ML VIAL IM ONE (08:14)
--- NOTE | 2024-09-08 14:22 | DVHPN2 ---
Subjective The patient is seen and examined at bedside. No complaint today. The also at bedside. Reviewed: Care Plan, H&P, Labs, Medications, Previous Orders, Radiology Changes from previous H/P or p: No Changes Cardiovascular: Edema (To right foot) Genitourinary: Retention Skin: Other (Redness and tenderness to right foot) Objective Vitals Vital Signs Date Time Temp Pulse Resp B/P (MAP) Pulse Ox O2 Delivery O2 Flow Rate FiO2 09/08/24 13:00 97.8 80 17 126/74 (91) 97 97.8 09/07/24 20:00 Room Air* 0 21 Intake/Output Intake and Output 09/08/24 07:00 Intake Total 1730 ml Output Total 3950 ml Balance -2220 ml Intake Oral 680 ml IV Total 1050 ml Output Urine Total 3950 ml # Bowel Movements 1 General Appearance: Alert, Oriented X3, Cooperative, No acute distress HEENT: Atraumatic, PERRLA, EOMI Neck: Supple Lungs: Clear to auscultation, Normal air movement Cardiovascular: Regular rate, Normal S1, Normal S2, No murmurs, Gallops Abdomen: Normal bowel sounds, Soft, No tenderness Neuro: Cranial nerves 3-12 NL Psych/Mental Status: Mental status NL Medications Current Medications Medications Dose Ordered Sig/Ariana Route Start Time Stop Time Status Last Admin Dose Admin Vancomycin HCl 0 ml @ 0 mls/hr UD IV 09/02/24 13:15 Sodium Chloride 1,000 ml @ 75 mls/hr [id number] IV 09/02/24 13:15 09/07/24 14:18 75 MLS/HR Acetaminophen/ Hydrocodone Bitart 1 tab Q4HP PRN PO 09/02/24 13:15 09/02/24 23:13 1 TAB Zinc Sulfate 220 mg DAILY PO 09/03/24 10:00 09/08/24 09:19 220 MG Ascorbic Acid 500 mg BID PO 09/02/24 22:00 09/08/24 09:19 500 MG Multivitamins 1 tab DAILY PO 09/03/24 10:00 09/08/24 09:19 1 TAB Acetaminophen 650 mg Q6HP PRN PO 09/02/24 13:15 Tamsulosin HCl 0.4 mg QPM PO 09/03/24 18:00 09/07/24 18:08 0.4 MG Dextrose 50 ml UD PRN IV 09/03/24 17:15 Diagnostic Test (Pha) 1 strip ACHS 09/05/24 22:00 09/08/24 11:05 1 STRIP Insulin Human Regular ACHS SC 09/05/24 22:00 09/08/24 11:13 3 UNITS Vancomycin HCl 250 ml @ 200 mls/hr Q10H IV 09/06/24 12:00 09/08/24 13:27 200 MLS/HR Piperacillin Sod/ Tazobactam Sod 100 ml @ 25 mls/hr Q6HR IV 09/07/24 00:00 09/08/24 06:04 25 MLS/HR Sodium Chloride 10 ml QSHIFT@10,22 IV 09/07/24 22:00 09/08/24 10:00 10 ML Laboratory Results Laboratory Tests 09/06/24 05:37 09/07/24 05:48 09/08/24 05:12 Urinalysis Test 09/02/24 14:47 Urine Color Yellow (Yellow) Urine Clarity Turbid (Clear) H Urine pH 6.0 (5.0-9.0) Urine Specific [place] 1.021 (1.001-1.035) Urine Protein Trace (Negative) H Urine Ketones 1+ (Negative) H Urine Blood 1+ /uL (Negative) H Urine Nitrite 2+ (Negative) H Urine Bilirubin Negative (Negative) Urine Urobilinogen Normal mg/dL (Negative) Urine Leukocyte Esterase 3+ /uL (Negative) Urine RBC 7 /hpf (0 - 3) Urine WBC 265 /hpf (0 - 3) Urine Squamous Epithelial Cells Few /hpf (<5) Urine Bacteria Few /hpf (None Seen) H Urine Glucose Normal mg/dL (Normal) Microbiology Microbiology Date/Time Source Procedure Growth Status 09/04/24 13:17 Foot Right Gram Stain - Final Resulted 09/04/24 13:17 Foot Right Anaerobic Culture - Preliminary Resulted 09/04/24 13:17 Foot Right Aerobic Culture - Preliminary Resulted 09/02/24 08:08 Blood Blood Culture - Final NO GROWTH AFTER 5 DAYS OF INCUBATION. Complete Labs and/or images reviewed: Labs reviewed by me Assessment/Plan Assessment/Plan Acute Osteomyelitis of the right lateral foot s/p I & D Diabetic foot ulcer Uncontrolled Diabetes, A1C 7.4 Urinary incontinence UTI Actinic Keratosis ?SCC like BPH, (PSA : 6.8) History of hypertension History of hyperlipidemia Plan --> Continue antibiotic: Vancomycin and Zosyn --> Mild Insulins sliding scale --> PSA lab pending --> For OR tomorrow for repeat incision and drainage --> Hydralazine 10mg prn if SBP is > 170 --> Tamsulosin --> Recommend that patient sees a game breeding farm manager outpatient -->PICC line for IV antibiotics placed today --> explained in details the the purpose of the PICC line and why the patient needed to have a PICC line and to be on antibiotics for 6 weeks. Waiting for registered nurse hh case manager to set up antibiotics. --> Pending susceptibility report This medical document was created using an electronic medical record system with [email or web address] direct computerized dictation system. Although this document has been carefully reviewed, there may still be some phonetic and typographical errors. These areas are purely typographical due to imperfections of the software programs, and do not reflect any compromise in the patient's medical care. Plan discussed with: Patient, Spouse Date of Service: Sep 08, 2024 Billing Provider: MUSA CHUNG MD Common Visit Codes: [id number] INP/OBS CARE(HIGH) MUSA CHUNG MD Sep 08, 2024 14:22
[2024-09-09] MEDS: PIPERACILLIN-TAZOB 3.375GM 100 ML IV SCH ×2 (01:32→22:43)
[2024-09-09 05:00] VITALS: BP 105/70; PULSE 84; RESP 18; TEMP 97.9; O2SAT 92
[2024-09-09 06:12] LABS: Basophils # (auto) 0 10 ^3/uL (0-0.2); Basophils % (auto) 0.4 % (0.0-2.0); Eosinophils # (auto) 0.3 10 ^3/uL (0-0.8); Eosinophils % (auto) 4.8 % (0.0-7.0); Hematocrit 40.8 % (41.0-53.0); Hemoglobin 14.1 g/dL (13.5-17.5); Lymphocytes # (auto) 1.2 10 ^3/uL (0.4-5.4); Lymphocytes % (auto) 17.7 % (10.0-50.0); Mean Corpuscular Hgb Conc. 34.6 g/dL (32.0-36.0); Mean Corpuscular Volume 89.4 fL (80.0-100.0); Monocytes % (auto) 13.7 % (0.0-12.0); Neutrophils # (auto) 4.4 10 ^3/uL (1.6-8.6); Neutrophils % (auto) 63.4 % (37.0-80.0); Platelet Count (auto) 219 10^3/uL (140-450); Red Blood Cells 4.56 10^6/uL (4.5-5.90); Red Cell Distribution Width 13.1 % (11.8-14.3)
[2024-09-09 09:00] VITALS: BP 116/78; PULSE 78; RESP 18; TEMP 98.4; O2SAT 94
[2024-09-09 13:00] VITALS: BP 112/81; PULSE 85; RESP 20; TEMP 97.8; O2SAT 94
[2024-09-09 17:01] VITALS: BP 122/72; PULSE 87; RESP 20; TEMP 97.7; O2SAT 94
--- NOTE | 2024-09-09 17:21 | DVHPNRES ---
Progress Note Date Seen: Sep 09, 2024 Resident Creating Document: PASCUAL SANDHU RESIDENT Medical Necessity Reason Pt with a Central, PICC or Fol: No Medical Necessity Reason Osteomyelitis Subjective Review of Systems Patient seen and examined at the bed side. He is doing well, moving and how no fever, chills or malaise He had a picc line in place Culture show: Aerobic Culture Preliminary Report Few growth: Coagulase Negative Staphylococcus Susceptibility testing not routinely done on this isolate. Rare growth: Staphylococcus aureus Susceptibility to follow. Objective vital signs Vital Sign Date Time Temp Pulse Resp B/P (MAP) Pulse Ox O2 Delivery O2 Flow Rate FiO2 09/09/24 17:01 97.7 87 20 122/72 (89) 94 97.7 09/09/24 08:00 Room Air* 0 21 Total Intake and Output 09/08/24 09/08/24 09/09/24 15:00 23:00 07:00 Intake Total 380 ml 800 ml 1200 ml Output Total 800 ml Balance 380 ml 0 ml 1200 ml medications Current Medications Medications Dose Ordered Sig/Ariana Route Start Time Stop Time Status Last Admin Dose Admin Vancomycin HCl 0 ml @ 0 mls/hr UD IV 09/02/24 13:15 Sodium Chloride 1,000 ml @ 75 mls/hr [id number] IV 09/02/24 13:15 09/07/24 14:18 75 MLS/HR Acetaminophen/ Hydrocodone Bitart 1 tab Q4HP PRN PO 09/02/24 13:15 09/02/24 23:13 1 TAB Zinc Sulfate 220 mg DAILY PO 09/03/24 10:00 09/09/24 08:05 220 MG Ascorbic Acid 500 mg BID PO 09/02/24 22:00 09/09/24 08:05 500 MG Multivitamins 1 tab DAILY PO 09/03/24 10:00 09/09/24 08:05 1 TAB Acetaminophen 650 mg Q6HP PRN PO 09/02/24 13:15 Tamsulosin HCl 0.4 mg QPM PO 09/03/24 18:00 09/08/24 17:50 0.4 MG Dextrose 50 ml UD PRN IV 09/03/24 17:15 Diagnostic Test (Pha) 1 strip ACHS 09/05/24 22:00 09/09/24 11:41 1 STRIP Insulin Human Regular ACHS SC 09/05/24 22:00 09/09/24 12:16 3 UNITS Vancomycin HCl 250 ml @ 200 mls/hr Q10H IV 09/06/24 12:00 09/09/24 12:16 200 MLS/HR Sodium Chloride 10 ml QSHIFT@10,22 IV 09/07/24 22:00 09/09/24 10:00 10 ML Piperacillin Sod/ Tazobactam Sod 100 ml @ 25 mls/hr Q6H IV 09/09/24 02:00 09/09/24 13:49 25 MLS/HR Examination General Appearance: Alert, Oriented X3, Cooperative, No acute distress HEENT: irregular rough skin elevations with central scars or scales noted on the right restorationist, Atraumatic, PERRLA, EOMI, Mucous membrane moist/pink Respiratory: Clear to auscultation, Normal air movement Cardiovascular: Regular rate, Normal S1, Normal S2, No murmurs, no chest wall tenderness Abdominal: NO distention, no tenderness, bowel sounds present, no scars noted Extremities: --Rt foot: --> s/p I&Dx2 --> Mild edema, erythema --> wrapped in bandage Left foot: No abnormalities noted, callus note at mid lateral foot Upper Extremities: irregular rough skin elevations with central scars or scales No clubbing, No cyanosis, No edema, Normal pulses, No tenderness/swelling Skin: No rashes, No breakdown, No significant lesion Neuro: Normal gait, Normal speech, Strength at 5/5 X4 ext, Normal tone, Sensation intact, Cranial nerves 3-12 NL, Reflexes 2+ Psych/Mental Status: Mental status NL, Mood NL laboratory and microbiology Laboratory Tests 09/09/24 05:18 09/07/24 05:48 Test 09/07/24 05:48 Range/Units Serum Glucose 172 H 74-106 mg/dL Microbiology Date/Time Source Procedure Growth Status 09/04/24 13:17 Foot Right Gram Stain - Final Resulted 09/04/24 13:17 Foot Right Anaerobic Culture - Final Resulted 09/04/24 13:17 Foot Right Aerobic Culture - Preliminary Resulted 09/02/24 08:08 Blood Blood Culture - Final NO GROWTH AFTER 5 DAYS OF INCUBATION. Complete Problem List/Assessment/Plan Problem List/Assessment/Plan Assessment Acute Osteomyelitis of the right lateral foot s/p I & D Diabetic foot ulcer Uncontrolled Diabetes, A1C 7.4 Urinary incontinence UTI Actinic Keratosis ?SCC like BPH, (PSA : 6.8) History of hypertension History of hyperlipidemia --> PICC in place Plan --> Continue antibiotic: Vancomycin per pharmacy and Zosyn --> Mild Insulins sliding scale --> For OR tomorrow for repeat incision and drainage --> Hydralazine 10mg prn if SBP is > 170 --> Tamsulosin --> Recommend that patient sees a customer contact representative outpatient --> Pending susceptibility report CODE STATUS: FULL Goal of care discussed for more than 25 minute Case and plan discussed with Dr. Marcus Plan discussed with: Patient, Spouse Dietary Evaluation Review Comments: Consider CECI 1 pkt BID for wound Expected Outcomes/Goals: F/U in 3-5 days Date of Service: Sep 09, 2024 Billing Provider: EARL MARCUS MD Common Visit Codes: [id number] INP/OBS CARE(HIGH) PASCUAL SANDHU RESIDENT Sep 09, 2024 17:21 EARL MARCUS MD Sep 09, 2024 20:23
[2024-09-09 20:00] VITALS: PULSE 87; RESP 17; O2SAT 96
[2024-09-09 21:00] VITALS: BP_SYST 123; BP_SYST 213; BP_DIAS 71; PULSE 87; RESP 17; TEMP 98; O2SAT 96
[2024-09-10] VITALS (7 sets, daily range): BP systolic 105–140; BP diastolic 58–86; PULSE 80–94; RESP 16–18; TEMP 97.5–98.3; O2SAT 94–100
[2024-09-10 08:14] LABS: Basophils # (auto) 0.1 10 ^3/uL (0-0.2); Basophils % (auto) 0.8 % (0.0-2.0); Eosinophils # (auto) 0.4 10 ^3/uL (0-0.8); Eosinophils % (auto) 4.6 % (0.0-7.0); Hematocrit 45.7 % (41.0-53.0); Hemoglobin 15.5 g/dL (13.5-17.5); Lymphocytes # (auto) 1.4 10 ^3/uL (0.4-5.4); Mean Corpuscular Hemoglobin 30.5 pg (28.0-32.0); Mean Corpuscular Hgb Conc. 33.8 g/dL (32.0-36.0); Monocytes # (auto) 0.9 10 ^3/uL (0-1.3); Neutrophils # (auto) 5.3 10 ^3/uL (1.6-8.6); Neutrophils % (auto) 66.6 % (37.0-80.0); Nucleated Red Blood Cells % 0.1 %; Platelet Count (auto) 271 10^3/uL (140-450); Red Blood Cells 5.08 10^6/uL (4.5-5.90); Red Cell Distribution Width 13.1 % (11.8-14.3)
[2024-09-10] MEDS: VANCOMYCIN 1.25GM/250ML 250 ML IV SCH (11:24)
--- NOTE | 2024-09-10 16:47 | DVHDSRES ---
Discharge Summary Date of Admission Resident Creating Document: PASCUAL SANDHU Sep 02, 2024 at 13:19 Date of Discharge: Sep 10, 2024 Admitting Diagnosis Diabetic foot ulcer Wounds: Diabetic foot ulcer Labs/Diagnostic Data: PATIENT: RAVINDER ELY ACCT: [id number] UNIT: [id number] : 1955 LOC: [facility] ROOM / BED: [facility] / A AGE / SEX: 68 / M ADM STATUS: ADM IN SERVICE 1829 ORDERING PHYSICIAN: PASCUAL SANDHU PROCEDURE(s): CXRP - CHEST PORTABLE REASON: pre op ORDER NUMBER(s): [id number], ACCESSION NUMBER(s): [id number] EXAM: XY CHEST PORTABLE TECHNIQUE: Single frontal chest radiograph CLINICAL HISTORY: pre op COMPARISON: None Findings/Impression: Frontal chest radiograph demonstrates no acute osseous or superficial soft tissue abnormalities. The trachea is midline. The cardiac silhouette and mediastinum are within normal limits. No pneumothorax, pleural effusions, or consolidations. ENT: RAVINDER ELY ACCT: [id number] UNIT: [id number] : 1955 LOC: [facility] ROOM / BED: [facility] / A AGE / SEX: 68 / M ADM STATUS: ADM IN SERVICE 1252 ORDERING PHYSICIAN: PASCUAL SANDHU PROCEDURE(s): RFTMR - MRI R FOOT WO CONTRAST REASON: r/o osteomylitis ORDER NUMBER(s): [id number], ACCESSION NUMBER(s): [id number] EXAM: MRI MRI R FOOT WO CONTRAST HISTORY: r/o osteomylitis COMPARISON: CT CT R FOOT WO CONTRAST on DOS: 09/02/24 TECHNIQUE: Multiplanar, multisequence MRI of the right foot was performed. FINDINGS: An approximately 3 x 2.3 x 0.5 cm subcutaneous fluid collection is noted on aspect of MTP joint, with overlying skin abrasion/ulceration. The adjacent metatarsal head cortex is irregular mildly edematous minimal underlying bone marrow edema suggestive of developing osteomyelitis. No 5th MTP joint effusion. No abnormal signal in the 5th proximal phalanx. Mild dorsal foot subcutaneous edema is seen. There is mild hallux valgus deformity with mild 1st MTP joint osteoarthritis and small joint effusion. Lisfranc joint is congruent and Lisfranc tendon is intact. Flexor and extensor tendons are intact. Moderate plantar and interosseous fatty muscle atrophy noted. Visualized plantar fascia is unremarkable. IMPRESSION: 1. Skin ulceration on the lateral and plantar aspect of the 5th MTP joint with a thin underlying 3 x 0.5 cm subcutaneous fluid collection extending to underlying 5th metatarsal head with evidence of developing acute osteomyelitis. 2. Mild dorsal foot subcutaneous edema. 3. Moderate plantar and interosseous fatty muscle atrophy. ATED BY: MARU MARLEY MD DICTATED DATE/TIME: 09/03/24 1552 PATIENT: RAVINDER ELY ACCT: [id number] UNIT: [id number] : 1955 LOC: ER ROOM / BED: / AGE / SEX: 68 / M ADM STATUS: REG ER SERVICE 0735 ORDERING PHYSICIAN: HENRY BROWNLEE MD PROCEDURE(s): RFTCT - CT R FOOT WO CONTRAST REASON: Diabetic foot ORDER NUMBER(s): [id number], ACCESSION NUMBER(s): [id number] EXAMINATION: CT CT R FOOT WO CONTRAST INDICATION: Diabetic foot COMPARISON: None TECHNIQUE: CT of the right foot was performed without contrast. Volume transverse images were obtained reconstructed in multiple planes using bone and soft tissue algorithms. CONTRAST: None Radiation Dose : CTDIvol 25 mGy, DLP 742.16 mGy*cm. The dose indicators for CT are the volume Computed Tomography (CT) Dose Index (CTDIvol) and the Dose Length Product (DLP), and are measured in units of mGy and mGy-cm, respectively. These indicators are not patient dose, but values generated from the CT scanner acquisition factors. The report includes radiation exposure data for exposures received during this examination. FINDINGS: There is a small wound underlying the 5th metatarsal head, with a superficial underlying hypodense collection measuring 2.1 x 3.0 x 1.0 cm that abuts the 5th metatarsal head.There is no definite erosive change of adjacent 5th metatarsal bone. Possible additional wound along the plantar surface of 1st metatarsal head is suggested, versus skin thickening. No acute fracture or osseous erosion is identified. There are scattered osseous degenerative changes. There is mild regional soft tissue swelling. IMPRESSION: 1. Small wound underlying the 5th metatarsal head. Superficial underlying hypodense collection measuring 2.1 x 3.0 x 1.0 cm that abuts the plantar aspect of the 5th metatarsal head, which could represent phlegmon versus abscess, incompletely evaluated without intravenous contrast. No definite erosive change of the adjacent 5th metatarsal bone. MRI is more sensitive in detecting osteomyelitis if clinically warranted. 2. Possible additional wound along the plantar surface of 1st metatarsal head, versus skin thickening. Correlate clinically. 3. Mild regional soft tissue edema / cellulitis. 4. No acute fracture. ATED BY: DIONI SOLER MD DICTATED DATE/TIME: 09/02/24 0948 Laboratory Results Test 09/10/24 11:28 09/10/24 07:05 09/07/24 05:48 09/06/24 05:37 POC Glucose 174 mg/dl (70-106) White Blood Count 8.0 10^3/uL (4.4-10.8) Red Blood Count 5.08 10^6/uL (4.5-5.90) Hemoglobin 15.5 g/dL (13.5-17.5) Hematocrit 45.7 % (41.0-53.0) Mean Corpuscular Volume 90.0 fL (80.0-100.0) Mean Corpuscular Hemoglobin 30.5 pg (28.0-32.0) Mean Corpuscular Hemoglobin Concent 33.8 g/dL (32.0-36.0) Red Cell Distribution Width 13.1 % (11.8-14.3) Platelet Count 271 10^3/uL (140-450) Mean Platelet Volume 7.8 fL (6.9-10.8) Neutrophils (%) (Auto) 66.6 % (37.0-80.0) Lymphocytes (%) (Auto) 17.0 % (10.0-50.0) Monocytes (%) (Auto) 11.0 % (0.0-12.0) Eosinophils (%) (Auto) 4.6 % (0.0-7.0) Basophils (%) (Auto) 0.8 % (0.0-2.0) Neutrophils # (Auto) 5.3 10 ^3/uL (1.6-8.6) Lymphocytes # (Auto) 1.4 10 ^3/uL (0.4-5.4) Monocytes # (Auto) 0.9 10 ^3/uL (0-1.3) Eosinophils # (Auto) 0.4 10 ^3/uL (0-0.8) Basophils # (Auto) 0.1 10 ^3/uL (0-0.2) Nucleated Red Blood Cells 0.1 % Creatinine 0.96 mg/dL (0.700-1.30) Glomerular Filtration Rate Calc 87 mL/min (>90) Vancomycin Level Trough 18.3 ug/mL (5-10) Prothrombin Time 11.4 sec (9.3-11.8) Prothrombin Time INR 1.08 (0.9-1.15) Activated Partial Thromboplast Time 25.9 SEC (24.5-34.5) Sodium Level 138 mmol/L (136-145) Potassium Level 3.7 mmol/L (3.5-5.1) Chloride Level 106 mmol/L (98-107) Carbon Dioxide Level 23 mmol/L (20-31) Anion Gap 9 (5-15) Blood Urea Nitrogen 10 mg/dL (9-23) BUN/Creatinine Ratio 11.2 (10.0-20.0) Serum Glucose 172 mg/dL (74-106) Calcium Level 9.9 mg/dL (8.7-10.4) Total Bilirubin 0.7 mg/dL (0.2-1.0) Aspartate Amino Transferase (AST) 17 U/L (13-40) Alanine Aminotransferase (ALT) 18 U/L (7-40) Alkaline Phosphatase 59 U/L (46-116) Total Protein 6.3 g/dL (5.7-8.2) Albumin 4.0 g/dL (3.2-4.8) Test 09/03/24 14:57 09/02/24 14:47 09/02/24 08:08 Free Prostate Specific Antigen 2.54 ng/mL (N/A) Percent Free Prostate Specific Ag 37.4 % (.) Prostate Specific Antigen Total 6.8 ng/mL (0.0-4.0) Urine Color Yellow (Yellow) Urine Clarity Turbid (Clear) Urine pH 6.0 (5.0-9.0) Urine Specific [place] 1.021 (1.001-1.035) Urine Protein Trace (Negative) Urine Ketones 1+ (Negative) Urine Blood 1+ /uL (Negative) Urine Nitrite 2+ (Negative) Urine Bilirubin Negative (Negative) Urine Urobilinogen Normal mg/dL (Negative) Urine Leukocyte Esterase 3+ /uL (Negative) Urine RBC 7 /hpf (0 - 3) Urine WBC 265 /hpf (0 - 3) Urine Squamous Epithelial Cells Few /hpf (<5) Urine Bacteria Few /hpf (None Seen) Urine Glucose Normal mg/dL (Normal) Erythrocyte Sedimentation Rate 14 mm/hr (0-20) Hemoglobin A1c 7.4 % A1C (<5.7) C-Reactive Protein High Sensitivity 4.33 mg/dL (<1.0) Other Laboratory Tests 09/10/24 07:05 09/07/24 05:48 Brief Hx & Hospital Course: Hospital course This 68-year-old male with history of type 2 DM presented to the ED on 09/02/2024 with chief complaint of right foot pain associated with swelling that started on and became progressively worse. Patient also complained of urinary retention and weak urinary stream for several days. The patient denies fever, chills, headache, dizziness, palpitation, chest pain, shortness of breaths nausea, vomiting, abdominal pain, diarrhea, constipation and other associated symptoms. Initial vitals in the ED were grossly unremarkable. blood work Lab work was also remote grossly unremarkable and UA was positive for UTI. CTof the foot revealed Small wound underlying the 5th metatarsal head. Superficial underlying hypodense collection measuring 2.1 x 3.0 x 1.0 cm that abuts the plantar aspect of the 5th metatarsal head, which could represent phlegmon versus abscess,incompletely evaluated without intravenous contrast. No definite erosive change of the adjacent 5th metatarsal bone. MRI showed Skin ulceration on the lateral and plantar aspect of the 5th MTP joint with a thin underlying 3 x 0.5 cm subcutaneous fluid collection extending to underlying 5th metatarsal head with evidence of developing acute osteomyelitis. Patient was started on vancomycin and Zosyn. Spiral Winder saw patient and took him for incision and drainage 2 times. Sample taken for culture and sensitivity. it grew coagulase negative staph and staph aureus. Sensitivity report showed sensitivity to many antibiotics including vancomycin. We will continue patient on vancomycin for 6 weeks. Patient also has diabetes which currently on insulin and tamsulosin for his BPH. Throughout his hospital stay patient has been stable no evidence of fever chills or changes in mental status. From a clinical standpoint, patient is stable for discharge we will send him home with home health.He will receive IV vancomycin via his PICC. CBC, CMP, ESR, CRP every 5 days. Labs to be sent to PCP office. Picc line to be flushed q3 days Examination General Appearance: Alert, Oriented X3, Cooperative, No acute distress HEENT: irregular rough skin elevations with central scars or scales noted on the right holiness, Atraumatic, PERRLA, EOMI, Mucous membrane moist/pink Respiratory: Clear to auscultation, Normal air movement Cardiovascular: Regular rate, Normal S1, Normal S2, No murmurs, no chest wall tenderness Abdominal: NO distention, no tenderness, bowel sounds present, no scars noted Extremities: --Rt foot: --> s/p I&Dx2 --> Mild edema, erythema --> wrapped in bandage Left foot: No abnormalities noted, callus note at mid lateral foot Upper Extremities: irregular rough skin elevations with central scars or scales No clubbing, No cyanosis, No edema, Normal pulses, No tenderness/swelling Skin: No rashes, No breakdown, No significant lesion Neuro: Normal gait, Normal speech, Strength at 5/5 X4 ext, Normal tone, Sensation intact, Cranial nerves 3-12 NL, Reflexes 2+ Psych/Mental Status: Mental status NL, Mood NL Diagnoses Acute Osteomyelitis of the right lateral foot s/p I & D Diabetic foot ulcer Uncontrolled Diabetes, A1C 7.4 Urinary incontinence UTI Actinic Keratosis ?SCC like BPH, (PSA : 6.8) History of hypertension History of hyperlipidemia Discharge plan Home with Home health for home abx needed. Vancomycin 1. 25gm q12hrs x 6 weeks for osteomyelitis. Pharmacy to monitor Vancomycin levels.CBC, CMP, ESR, CRP every 5 days. Labs to be sent to PCP office. Picc line to be flushed q3 days Follow up at the discharge clinic in 7 days See a dermatology for skin lesions control diabetes and follow up with the PCP Case and discharge plan discussed with Dr. Padilla Consults/Reason for consult Reason for Consultation: right foot wound Operations or Procedures Operative Report - 2 Report Details Date: 09/06/24 Preop Diagnosis: 1. Right foot abscess 2. Right foot osteomyelitis 3. Right foot cellulitis 4. Right foot chronic ulcer Postop Diagnosis: Same as preop Surgeon: Geo Lind MD Anesthesiologist: See anesthesia Anesthesia: Mac Consent: The patient was informed of the risks and benefits of the procedure. These include but are not limited to complications of anesthesia, postoperative infection, incomplete relief of symptoms, recurrence of symptoms, damage to blood vessels, nerves and tendons, deep venous thrombosis, pulmonary embolism and possible need for repeat surgery in the future. Complications: None Estimated Blood Loss: Minimal Fluids: See anesthesia Findings: Consistent with diagnosis Indications for Surgery: Worsening foot wound Name of Procedure Performed 1. Right foot I&D to bone (66299) 2. Right foot bone biopsy () 3. Right foot delayed closure (33712) Procedure Details Procedure Details: PRE-PROCEDURE INFORMATION: In the pre-op holding area, the extremity to be operated on was clearly marked and the patient verified correct laterality of the marking. The patient was transferred to the OR table and placed in a supine position. A timeout was performed in which identification of the correct patient, procedure, location, and materials was done. The right foot and leg were prepped and draped in normal sterile fashion. DESCRIPTION OF PROCEDURE: Attention was directed to the right where previous incision was made. An incision was made over this area and was deepened through blunt dissection. The incision was deepened to the level of abscess and bone. Care was taken to the dissection to avoid any neurovascular and tendinous structures. The incision was deepened to the bone, and the abscess appeared to be purulent fluid consistent with pus. The cortices of the bone was then removed with Ta an all necrotic tissue. After the abscess was drained, the area was irrigated with 3 L normal saline using cysto tubing. A bone biopsy was then taken of the right 5th metatarsal head which was deepened to the muscle belly and tendons. The bone was then sent to pathology to determine the extent of osteomyelitis. The area was then inspected and any areas of tracking, especially along the tendons were also drained. Delayed closure was then performed with 2-0 nylon. POSTOPERATIVE INFORMATION: The patient tolerated the above noted procedure and anesthesia well and was transferred to the PACU with vital signs stable, and vascular status intact with capillary refill intact to all digits. Patient will continue to be on IV antibiotics. Patient will need 6 weeks of IV antibiotics. Patient can weightbear as tolerated with postop shoe. Patient can discharge when deemed medically stable. Condition Good Disposition 2 Still a Patient GEO LIND DPM Sep 06, 2024 11:50 DICTATED BY:GEO LIND DPTabitha DICTATED DATE/TIME:09/06/24 1150 Report Details Date: 09/04/24 Preop Diagnosis: 1. Right foot abscess 2. Right foot osteomyelitis 3. Right foot cellulitis 4. Right foot chronic ulcer Postop Diagnosis: Same as preop Surgeon: Geo Lind MD Anesthesiologist: See anesthesia Anesthesia: Mac Consent: The patient was informed of the risks and benefits of the procedure. These include but are not limited to complications of anesthesia, postoperative infection, incomplete relief of symptoms, recurrence of symptoms, damage to blood vessels, nerves and tendons, deep venous thrombosis, pulmonary embolism and possible need for repeat surgery in the future. Complications: None Estimated Blood Loss: Minimal Fluids: See anesthesia Findings: Consistent with diagnosis Indications for Surgery: Worsening right foot wound Name of Procedure Performed 1. Right foot I&D to bone (55104) 2. Right foot bone biopsy () Procedure Details Procedure Details: PRE-PROCEDURE INFORMATION: In the pre-op holding area, the extremity to be operated on was clearly marked and the patient verified correct laterality of the marking. The patient was transferred to the OR table and placed in a supine position. A timeout was performed in which identification of the correct patient, procedure, location, and materials was done. The right foot and leg were prepped and draped in normal sterile fashion. DESCRIPTION OF PROCEDURE: Attention was directed to the right where area of fluctuance was noted. An incision was made over this area and was deepened through blunt dissection. The incision was deepened to the level of abscess and bone. Care was taken to the dissection to avoid any neurovascular and tendinous structures. The incision was deepened to the bone, and the abscess appeared to be purulent fluid consistent with pus. The cortices of the bone was then removed with Ta an all necrotic tissue. After the abscess was drained, the area was irrigated with 3 L normal saline using cysto tubing. A bone biopsy was then taken of the right 5th metatarsal which was deepened to the muscle belly and tendons. The bone was then sent to pathology to determine the extent of osteomyelitis. Deep cultures were then obtained from the wound. The area was then inspected and any areas of tracking, especially along the tendons were also drained. The wound was packed with Betadine-soaked gauze and we will need to be closed at a later date. POSTOPERATIVE INFORMATION: The patient tolerated the above noted procedure and anesthesia well and was transferred to the PACU with vital signs stable, and vascular status intact with capillary refill intact to all digits. Patient will continue to be on IV antibiotics. Bone biopsy was taken and IV antibiotics. Patient will return to the OR on for repeat I&D with closure. Condition Good Disposition 2 Still a Patient GEO LIND DPM Sep 04, 2024 13:04 DICTATED BY:GEO LIND DPM DICTATED DATE/TIME:09/04/24 1304 Condition at Discharge: Good Final Diagnosis/Problems List Acute Osteomyelitis of the right lateral foot s/p I & D Diabetic foot ulcer Uncontrolled Diabetes, A1C 7.4 Urinary incontinence UTI Actinic Keratosis ?SCC BPH, (PSA : 6.8) History of hypertension History of hyperlipidemia Discharge Disposition: Home with Health Services Discharge Instruct/Medications Diet: Regular Activity: Light activity Follow Up/Referral: 7 days Medications: Vancomycin Zosyn Mild Insulins Discharge Statement: "Patient was advised to return to the ER or call 911 if any headaches, dizziness, shortness of breath, chest pain, abdominal pain, bleeding, fevers, or worsening of medical condition. Patient was counseled about treatment plan, medications, possible side effects, patientverbalized understanding. All questions were answered to the best of my ability. This discharge took greater then 30 minutes in planning, reviewing documentation, counseling the patient, and discussing with other team members." ASSESSMENT ASSESSMENT Assessment Acute Osteomyelitis of the right lateral foot s/p I & D Diabetic foot ulcer Uncontrolled Diabetes, A1C 7.4 Urinary incontinence UTI Actinic Keratosis ?SCC BPH, (PSA : 6.8) History of hypertension History of hyperlipidemia Date of Service: Sep 10, 2024 Billing Provider: RUDY PADILLA MD Common Visit Codes: 27928-ZQV/OBS DISCH DAY >30min PASCUAL SANDHU RESIDENT Sep 10, 2024 16:47 RUDY PADILLA MD Sep 10, 2024 22:08
[2024-09-11 05:00] VITALS: BP 120/76; PULSE 79; RESP 18; TEMP 98.5; O2SAT 96
[2024-09-11 06:41] LABS: Basophils # (auto) 0 10 ^3/uL (0-0.2); Basophils % (auto) 0.7 % (0.0-2.0); Eosinophils # (auto) 0.4 10 ^3/uL (0-0.8); Eosinophils % (auto) 5.6 % (0.0-7.0); Hematocrit 41.2 % (41.0-53.0); Hemoglobin 14.1 g/dL (13.5-17.5); Lymphocytes # (auto) 1.2 10 ^3/uL (0.4-5.4); Lymphocytes % (auto) 16.5 % (10.0-50.0); Mean Corpuscular Hemoglobin 30.8 pg (28.0-32.0); Mean Corpuscular Hgb Conc. 34.1 g/dL (32.0-36.0); Mean Corpuscular Volume 90.2 fL (80.0-100.0); Monocytes # (auto) 0.9 10 ^3/uL (0-1.3); Monocytes % (auto) 13.5 % (0.0-12.0); Neutrophils # (auto) 4.4 10 ^3/uL (1.6-8.6); Neutrophils % (auto) 63.7 % (37.0-80.0); Platelet Count (auto) 222 10^3/uL (140-450); Red Blood Cells 4.57 10^6/uL (4.5-5.90); Red Cell Distribution Width 13.4 % (11.8-14.3)
[2024-09-11 09:00] VITALS: BP 110/61; PULSE 87; RESP 17; TEMP 97.2; O2SAT 90
[2024-09-11 13:00] VITALS: BP 126/83; PULSE 85; RESP 17; TEMP 97.9; O2SAT 96
--- NOTE | 2024-09-11 18:28 | DVHPNRES ---
Progress Note Date Seen: Sep 11, 2024 Resident Creating Document: PASCUAL SANDHU RESIDENT Medical Necessity Reason Pt with a Central, PICC or Fol: No Medical Necessity Reason pending home health confirmation for his antibiotic delivering Subjective Review of Systems Patient was discharged yesterday (09/10/2024) back home with home health. However, he was unable to go because the bilingual case manager was pending an approval from the home health company. Once patient get an approval he would be sent home. Constitutional: Denies fever no chills no feeling of malaise HEENT: Denies headache, ear pain, ear discharges, conjunctivitis, nasal discharge throat pain Cardiovascular: Denies chest pain, palpitation, orthopnea, PND, or pedal edema Respiratory: Denies shortness of breath, cough cough, sputum production, hemoptysis, GI: Denies abdominal pain, nausea, vomiting, diarrhea, hematemesis, hematochezia, : Denies frequency, urgency, hematuria, Endocrine: Denies unintentional weight gain or weight loss, feeling of hot flashes, David: Denies easy bruising, bleeding disorders, epistaxis Musculoskeletal: Denies joint pains, muscle aches Psych: No evidence of depression, jenny, suicidal ideation Objective vital signs Vital Sign Date Time Temp Pulse Resp B/P (MAP) Pulse Ox O2 Delivery O2 Flow Rate FiO2 09/11/24 13:00 97.9 85 17 126/83 (97) 96 97.9 09/11/24 08:00 Room Air* 0 21 Total Intake and Output 09/10/24 09/10/24 09/11/24 15:00 23:00 07:00 Intake Total 250 ml 2295 ml 550 ml Balance 250 ml 2295 ml 550 ml Examination General Appearance: Alert, Oriented X3, Cooperative, No acute distress HEENT: irregular rough skin elevations with central scars or scales noted on the right jainism, Atraumatic, PERRLA, EOMI, Mucous membrane moist/pink Respiratory: Clear to auscultation, Normal air movement Cardiovascular: Regular rate, Normal S1, Normal S2, No murmurs, no chest wall tenderness Abdominal: NO distention, no tenderness, bowel sounds present, no scars noted Extremities: --Rt foot: --> s/p I&Dx2 --> Mild edema, erythema --> wrapped in bandage Left foot: No abnormalities noted, callus note at mid lateral foot Upper Extremities: irregular rough skin elevations with central scars or scales No clubbing, No cyanosis, No edema, Normal pulses, No tenderness/swelling Skin: No rashes, No breakdown, No significant lesion Neuro: Normal gait, Normal speech, Strength at 5/5 X4 ext, Normal tone, Sensation intact, Cranial nerves 3-12 NL, Reflexes 2+ Psych/Mental Status: Mental status NL, Mood NL laboratory and microbiology Laboratory Tests 09/11/24 05:17 09/07/24 05:48 Test 09/07/24 05:48 Range/Units Serum Glucose 172 H 74-106 mg/dL Microbiology Date/Time Source Procedure Growth Status 09/04/24 13:17 Foot Right Gram Stain - Final Complete 09/04/24 13:17 Foot Right Anaerobic Culture - Final Complete 09/04/24 13:17 Aerobic Culture - Final Staphylococcus aureus Complete 09/02/24 08:08 Blood Blood Culture - Final NO GROWTH AFTER 5 DAYS OF INCUBATION. Complete Problem List/Assessment/Plan Problem List/Assessment/Plan Assessment Acute Osteomyelitis of the right lateral foot s/p I & D Diabetic foot ulcer Uncontrolled Diabetes, A1C 7.4 Urinary incontinence UTI Actinic Keratosis ?SCC like BPH, (PSA : 6.8) History of hypertension History of hyperlipidemia PICC in place Plan --> Continue antibiotic: Vancomycin per pharmacy and Zosyn --> Mild Insulins sliding scale --> For OR tomorrow for repeat incision and drainage --> Hydralazine 10mg prn if SBP is > 170 --> Tamsulosin --> Recommend that patient sees a turfgrass management professor outpatient home today CODE STATUS: FULL Goal of care discussed for more than 25 minute Case and plan discussed with Dr. Padilla Plan discussed with: Patient Dietary Evaluation Review Comments: Consider CECI 1 pkt BID for wound Expected Outcomes/Goals: F/U in 3-5 days Date of Service: Sep 11, 2024 Billing Provider: RUDY PADILLA MD Common Visit Codes: [id number] INP/OBS CARE(MOD) PASCUAL SANDHU RESIDENT Sep 11, 2024 18:28 RUDY PADILLA MD Sep 12, 2024 19:27
== END 2024-09-11 17:32 | disposition home health service (06) | DRG 674 ==
LOC: ER 06:44 → OVERFLOW 13:19 → WEST WING 22:40
PROVIDERS: ADMIT Internal Medicine Geriatric Medicine; ATTEND Internal Medicine Geriatric Medicine
PROC: 0Y9M0ZZ Drainage of Right Foot, Open Approach (ICD-10-PCS; 2024-09-04)
PROC: 0QBN0ZX Excision of Right Metatarsal, Open Approach, Diagnostic (ICD-10-PCS; principal; 2024-09-04 12:40)
PROC: 0QBN0ZX Excision of Right Metatarsal, Open Approach, Diagnostic (ICD-10-PCS; 2024-09-06)
PROC: 0Y9M0ZZ Drainage of Right Foot, Open Approach (ICD-10-PCS; 2024-09-06)
PROC: 02HV33Z Insertion of Infusion Device into Superior Vena Cava, Percutaneous Approach (ICD-10-PCS; 2024-09-07)
PROC: B548ZZA Ultrasonography of Superior Vena Cava, Guidance (ICD-10-PCS; 2024-09-07)
DX: N30.00 Acute cystitis without hematuria (principal); L02.611 Cutaneous abscess of right foot; L03.115 Cellulitis of right lower limb; M86.171 Other acute osteomyelitis, right ankle and foot; E11.69 Type 2 diabetes mellitus with other specified complication; N40.0 Benign prostatic hyperplasia without lower urinary tract symptoms; E11.621 Type 2 diabetes mellitus with foot ulcer; K59.00 Constipation, unspecified; L57.0 Actinic keratosis; E78.5 Hyperlipidemia, unspecified; I10 Essential (primary) hypertension; R32 Unspecified urinary incontinence; L97.519 Non-pressure chronic ulcer of other part of right foot with unspecified severity; Z82.49 Family history of ischemic heart disease and other diseases of the circulatory system
CPT/HCPCS: 36415; 36569; 71045; 73700; 73718; 76937; 80048; 80053; 80202; 81001; 82565; 82962; 83036; 84154; 85025; 85610; 85652; 85730; 86141; 86850; 86900; 86901; 87040; 87070; 87075; 87077; 87186; 87205; 99291; G0378; J1100; J1815; J2250; J2543; J2704; J3490

== ENCOUNTER → 2025-01-04 | Outpatient (CLI) | payer MEDICARE | END | disposition home or self-care (01) | LOC: LAB 10:20 | PROVIDERS: ATTEND Family Medicine | DX: Z01.812 Encounter for preprocedural laboratory examination (principal); D48.5 Neoplasm of uncertain behavior of skin ==

== ENCOUNTER 2025-03-01 11:36 | Outpatient (CLI) | payer MEDICARE | END 2025-03-01 17:00 | disposition home or self-care (01) | LOC: LAB 11:36 | PROVIDERS: ATTEND Family Medicine | DX: D48.5 Neoplasm of uncertain behavior of skin (principal) ==

== ENCOUNTER → 2025-03-15 | Outpatient (CLI) | payer MEDICARE | END | disposition home or self-care (01) | LOC: LAB 08:53 | PROVIDERS: ATTEND Family Medicine | DX: D48.5 Neoplasm of uncertain behavior of skin (principal) ==

== ENCOUNTER → 2025-03-29 | Outpatient (CLI) | payer MEDICARE | END | disposition home or self-care (01) | LOC: LAB 10:14 | PROVIDERS: ATTEND Family Medicine | DX: Z01.812 Encounter for preprocedural laboratory examination (principal); D48.5 Neoplasm of uncertain behavior of skin ==

== ENCOUNTER 2025-06-14 08:37 | Outpatient (CLI) | payer MEDICARE, MEDICAID ==
[2025-06-14 09:33] LABS: Urine Protein, UAD Negative (Negative)
[2025-06-14 11:40] LABS: Anion Gap 11 (5-15); BUN/Creatinine Ratio 13.8 (10.0-20.0); Blood Urea Nitrogen 12 mg/dL (9-23); Calcium 9.6 mg/dL (8.7-10.4); Carbon Dioxide 26 mmol/L (20-31); Chloride 105 mmol/L (98-107); Glucose 111 mg/dL (74-106); Potassium 4.4 mmol/L (3.5-5.1); Sodium 142 mmol/L (136-145)
[2025-06-14 11:41] LABS: Cholesterol 212 mg/dL (< 200); HDL Cholesterol 64 mg/dL (40-59); Triglycerides 68 mg/dL (< 150)
[2025-06-14 12:33] LABS: Microalb/Creat Ratio, Urine 4.00
== END 2025-06-14 17:00 | disposition home or self-care (01) ==
LOC: LAB 08:37
PROVIDERS: ATTEND Internal Medicine
DX: E11.22 Type 2 diabetes mellitus with diabetic chronic kidney disease (principal); N18.2 Chronic kidney disease, stage 2 (mild); E11.69 Type 2 diabetes mellitus with other specified complication; N40.0 Benign prostatic hyperplasia without lower urinary tract symptoms; E78.5 Hyperlipidemia, unspecified; Z11.59 Encounter for screening for other viral diseases; Z12.11 Encounter for screening for malignant neoplasm of colon
CPT/HCPCS: 36415; 80048; 80061; 81001; 82043; 82274; 82570; 83036; 84153; 87902